=== PATIENT | female | born 1970 | race Hispanic/Latino ===

== ENCOUNTER 2017-05-24 15:52 | Observation (INO) | payer SELFPAY ==
[2017-05-24 16:45] LABS: #Basophils 0.1 thou/uL (0.0-0.2); #Eosinphils 0.3 thou/uL (0.0-0.7); #Monocytes 0.3 thou/uL (0.11-0.59); #Neutrophils 4.6 thou/uL (1.40-6.50); %Lymphocytes 27.6 % (21.0-51.0); Hematocrit 44.1 % (36.0-47.0); Mean Platelet Volume 11.1 fL (7.4-10.4); Red Blood Cell (RBC) Count 5.38 mill/uL (4.20-5.40); White Blood Cell (WBC) Count 7.2 thou/uL (4.8-10.8)
[2017-05-24 17:07] LABS: ALT (SGPT) 50 U/L (8-55); AST (SGOT) 63 U/L (5-34); Alkaline Phosphatase 88 U/L (40-150); Anion Gap 13 mmol/L (10-20); BUN (Urea Nitrogen) 10 mg/dL (7.0-18.7); Bilirubin, Total 0.2 mg/dL (0.2-1.2); Calc. Creatinine Clearance 0 mL/min (70-130); Calcium 8.8 mg/dL (7.8-10.44); Carbon Dioxide 22 mmol/L (22-29); Chloride 101 mmol/L (98-107); Estimated GFR-MDRD 80; Globulin 3.8 g/dL (2.4-3.5); Protein, Total 7.5 g/dL (6.0-8.3)
[2017-05-24 18:05] LABS: PTT 29.3 SEC (22.9-36.1); Prothrombin Time 13.5 SEC (12.0-14.7)
--- NOTE | 2017-05-24 20:09 | ULT ---
BILATERAL LOWER EXTREMITY VENOUS DUPLEX EXAM: 05/24/17 HISTORY: Leg pain. Examination is limited due to body habitus. Patient also is in considerable pain due to ultrasound p robe. Real time color doppler evaluation of the right and left lower extremities was performed from groin to calf. This includes evaluation of the common femoral, superficial and profunda femoral, saphenous , popliteal and trifurcation veins. This shows patent deep venous systems bilaterally. There is norm al compressibility and augmentation. IMPRESSION: No evidence of DVT of either lower extremity. POS: [facility]
[2017-05-24] MEDS ORDERED: Clindamycin (PEDI) 450 MG in Admixture Fee 1 EACH IVPB SCH ×4 (20:30)
[2017-05-24] MEDS ORDERED: Insulin Regular 300 UNITS/3 ML VIAL ONE (20:33)
[2017-05-24] MEDS ORDERED: HYDROcodone/Acetaminophen 10/325 mg Tablet ONE (20:33)
[2017-05-24] MEDS ORDERED: Ondansetron HCl/PF 4 MG/2 ML Vial IVP PRN ×2 (22:05→22:16)
[2017-05-24] MEDS ORDERED: HYDROcodone/Acetaminophen 5/325 mg Tablet PO PRN ×2 (22:05)
[2017-05-24] MEDS ORDERED: Ondansetron ODT 4 MG TAB SL PRN (22:05)
[2017-05-24] MEDS ORDERED: Temazepam 15 MG CAP PO PRN (22:16)
[2017-05-24] MEDS ORDERED: Lorazepam 1 MG TAB PO PRN (22:16)
[2017-05-24] MEDS ORDERED: Bisacodyl 5 MG TAB PO PRN (22:16)
[2017-05-24] MEDS ORDERED: Loratadine 10 MG TAB PO PRN (22:16)
[2017-05-24] MEDS ORDERED: traMADol HCl 50 MG TAB PO PRN (22:16)
[2017-05-24] MEDS ORDERED: Calcium Carbonate 500 MG ChewTAB PO PRN (22:16)
[2017-05-24] MEDS ORDERED: Acetaminophen 325 MG TAB PO PRN (22:16)
[2017-05-24] MEDS ORDERED: cloNIDine 0.1 MG TAB PO PRN (22:16)
[2017-05-24] MEDS ORDERED: Senokot 8.6 MG TAB PO PRN (22:16)
[2017-05-24] MEDS ORDERED: Milk Of Magnesia 30 ML UDCUP PO PRN (22:16)
[2017-05-24] MEDS ORDERED: Diabetic Tussin 200 MG/10 ML UDCUP PO PRN (22:16)
[2017-05-24] MEDS ORDERED: Mag-Al 1200 mg/1200 mg/30 ML UDCUP PO PRN (22:16)
[2017-05-24] MEDS ORDERED: Dextrose 5% in Water 1,000 ML IV PRN (22:16)
[2017-05-24] MEDS ORDERED: Dextrose 50% Abboject 50 ML SYRINGE SLOW IVP PRN (22:16)
[2017-05-24] MEDS ORDERED: Benzonatate 100 MG CAP PO PRN (22:16)
[2017-05-24] MEDS ORDERED: Nitroglycerin 0.4 MG TAB (25 Tab Bottle) SL PRN (22:16)
[2017-05-24] MEDS ORDERED: hydrALAZINE 20 MG/ML VIAL SLOW IVP PRN (22:16)
[2017-05-24] MEDS ORDERED: Sodium Chloride 0.9% 1,000 ML IV SCH (22:30)
[2017-05-24] MEDS ORDERED: Vancomycin HCl 1.75 GM in Sodium Chloride 0.9% 500 ML IVPB SCH (23:00)
[2017-05-24 23:14] VITALS: BMI 39.5
[2017-05-25 04:46] LABS: #Eosinphils 0.3 thou/uL (0.0-0.7); #Monocytes 0.3 thou/uL (0.11-0.59); #Neutrophils 4.2 thou/uL (1.40-6.50); %Basophils 0.2 % (0.0-1.0); %Eosinophils 4.5 % (0.0-10.0); %Lymphocytes 29.8 % (21.0-51.0); %Monocytes 3.9 % (0.0-10.0); Hematocrit 38.5 % (36.0-47.0); Mean Platelet Volume 11.3 fL (7.4-10.4); Red Blood Cell (RBC) Count 4.79 mill/uL (4.20-5.40); White Blood Cell (WBC) Count 6.8 thou/uL (4.8-10.8)
[2017-05-25 05:04] LABS: Anion Gap 8 mmol/L (10-20); BUN (Urea Nitrogen) 9 mg/dL (7.0-18.7); Calc. Creatinine Clearance 200 mL/min (70-130); Calcium 8.4 mg/dL (7.8-10.44); Carbon Dioxide 27 mmol/L (22-29); Chloride 102 mmol/L (98-107); Estimated GFR-MDRD Greater than 90
[2017-05-25] MEDS: HumaLOG 300 UNITS/3 ML VIAL SC PRN ×3 (05:29→20:13)
[2017-05-25] MEDS: Meropenem 1 GM, Admixture Fee 1 EACH in Sodium Chloride 0.9% 100 ML IVPB SCH ×3 (05:29→20:11)
[2017-05-25] MEDS ORDERED: CETIRIZINE HCL PO PRN (06:43)
[2017-05-25] MEDS ORDERED: PROVENTIL INHALER 6.7 G (200 INHALATIONS) INH PRN (06:43)
[2017-05-25] MEDS ORDERED: Loratadine 10 MG TAB PO PRN (06:57)
--- NOTE | 2017-05-25 07:37 | HP ---
DATE OF ADMISSION: 05/24/2017 PRIMARY CARE PHYSICIAN: Dr. Faby Lloyd. CHIEF COMPLAINT: Lower extremity pain and redness bilaterally. HISTORY OF PRESENT ILLNESS: Ms. hCristian is a pleasant 46-year-old female with past medical h istory of diabetes, hypertension, and dyslipidemia, who presented to the emergency room with the abo ve-mentioned complaint. History is mainly obtained by the patient herself and electronic medical re cords have been reviewed. The patient was last admitted to our facility last year, at which time rocío urbano was admitted and treated for asthma exacerbation and chest pain workup. Today, the patient reports that she has been having pain in both of her legs for the last 3-4 days, which has gotten progressively worse. She has also started to notice swelling and redness in her le gs as well. She had a small abrasion on her right gomes, but then her symptoms extended to both legs . She has no history of DVT or cellulitis or similar symptoms in the past. She denies any fevers, but has been having some chills. She is compliant with her medications, being on insulin, but her b lood sugars have been running higher than normal. She presented to the ER. Upon presentation to the ER, she was hemodynamically stable with a blood pressure of 114/74 with a p ulse of 78. On examination, she was found to have bilateral cellulitis-like symptoms in her legs wi th erythema, which is more like petechiae on both legs associated with tenderness to touch. She king s not have any edema. She underwent lower extremity ultrasound, which was negative for DVT. She wa s given IV antibiotics, namely clindamycin in the ER and is now being admitted with a presumptive di agnosis of cellulitis. PAST MEDICAL HISTORY: 1. Diabetes mellitus, type 2, insulin-dependent. 2. Hypertension. 3. Dyslipidemia. 4. Asthma. 5. Depression. PAST SURGICAL HISTORY: 1. Hysterectomy with tubal ligation and salpingo-oophorectomy. 2. Drainage of right paratubal cyst. SOCIAL HISTORY: She is and lives with her family. No history of drug, tobacco, or alcohol abuse. FAMILY HISTORY: Significant for father at the age of 92. He had a heart attack and heart dise ase. Multiple family members have diabetes and hypertension. ALLERGIES: Include KEFLEX and LISINOPRIL. MEDICATIONS: She is on Lyrica 150 mg p.o. b.i.d., aspirin 81 mg daily, ranitidine 150 mg daily, Duo Neb as needed, insulin Lantus 75 units b.i.d., Prempro 1 tablet at bedtime, cetirizine as needed, Ce lebrex 1 tablet p.o. b.i.d., albuterol inhaler as needed, NovoLog 10 units t.i.d., Prozac 1 tablet d aily, Glucotrol-XL 10 mg daily, and Cozaar 25 mg daily. REVIEW OF SYSTEMS: The following complete review of systems was negative, unless otherwise mentione d in the HPI or below: Constitutional: Weight loss or gain, ability to conduct usual activities. Skin: Rash, itching. Eyes: Double vision, pain. ENT/Mouth: Nose bleeding, neck stiffness, pain, tenderness. Cardiovascular: Palpitations, dyspnea on exertion, orthopnea. Respiratory: Shortnes s of breath, wheezing, cough, hemoptysis, fever or night sweats. Gastrointestinal: Poor appetite, abdominal pain, heartburn, nausea, vomiting, constipation, or diarrhea. Genitourinary: Urgency, fr equency, dysuria, nocturia. Musculoskeletal: Pain, swelling. Neurologic/Psychiatric: Anxiety, de pression. Allergy/Immunologic: Skin rash, bleeding tendency. It is negative except for those ment ioned in the history and physical. LABORATORY DATA: 1. Her CBC is remarkable. WBC is 7.2 with 63% neutrophils. 2. Coagulation studies within normal limits. 3. Serum chemistry shows sodium of 132 with blood sugar of 341. Her C-reactive protein is minimall y elevated at 2.49. 4. Lower extremity ultrasound is negative for DVT bilaterally. PHYSICAL EXAMINATION: VITAL SIGNS: Include temperature 98.6, pulse of 76, respirations 20, saturating 95% on room air, bl ood pressure 130/77. GENERAL: In no acute distress, lying comfortably in bed, awake, alert, oriented x3. HEENT EXAMINATION: Mucous membrane is moist and pink. No oropharyngeal exudate or erythema. Head is normocephalic and atraumatic. Pupils equal, reactive to light. NECK: Supple without any lymphadenopathy, JVD, or bruit. CHEST: Clear to auscultation without any wheezing, rales, or rhonchi. Rhythm is regular without an y murmur, rubs, or gallops. ABDOMEN: Obese, soft, nontender, nondistended, positive bowel sounds. EXTREMITIES: Show calf tenderness bilaterally with a small abrasion on the right gomes and petechia- like erythema and non-blanchable red rash on both shins going up to the right anterior thigh. NEUROLOGIC EXAMINATION: Nonfocal. SKIN: As above on the legs. VASCULAR: A +2 pedal pulses felt bilaterally. IMPRESSION AND PLAN: 1. Bilateral lower extremity cellulitis. The patient has had a small trauma to her right gomes, and her being a diabetic she is more susceptible for infections. At this time, she will be treated wit h IV antibiotics in the form of vancomycin and meropenem given her allergy to cephalosporin. She wi ll be treated with 1 bag of normal saline at 75 mL per hour and blood cultures will be followed. At this time, she is hemodynamically stable. 2. Diabetes mellitus. We will restart her home medications and add insulin sliding scale and provi de Accu-Cheks before meals and at bedtime with a heart healthy and carb-controlled diet. 3. Hypertension, currently well controlled. We will restart her home medications with parameters. 4. History of asthma, currently well controlled symptoms without any exacerbation. We will continu e her home medication of the inhalers at this time. 6. Deep vein thrombosis and gastrointestinal prophylaxis in the form of subcutaneous Lovenox and pr oton pump and Pepcid b.i.d. 7. Code status: FULL CODE, discussed with the patient. DISPOSITION: The patient is being admitted to medical floor for lower extremity cellulitis and rule out sepsis. Further management will depend upon her clinical course. Estimated length of stay is at least 2-3 midnights.
[2017-05-25] MEDS: HYDROcodone/Acetaminophen 5/325 mg Tablet PO PRN ×2 (08:24→20:10)
[2017-05-25] MEDS: CeleCOXIB 100 MG CAP PO SCH ×2 (08:25→20:11)
[2017-05-25] MEDS: Pregabalin 75 MG CAP PO SCH ×2 (08:27→20:10)
[2017-05-25] MEDS: Famotidine 20 MG TAB PO SCH (08:28)
[2017-05-25] MEDS: FLUoxetine HCl 10 MG CAP PO SCH (08:28)
[2017-05-25] MEDS: Enoxaparin Sodium 40 MG/0.4 ML SYRINGE SC SCH (08:44)
[2017-05-25] MEDS: HumaLOG 300 UNITS/3 ML VIAL SC SCH ×3 (08:44→16:46)
[2017-05-25] MEDS: Losartan Potassium 25 MG TAB PO SCH (08:45)
[2017-05-25] MEDS ORDERED: Non-Formulary Item 1 EACH (Ranitidine Hcl [Ranitidine Hcl] 150 MG) PO SCH (09:00)
[2017-05-25] MEDS ORDERED: FLU VACC QS2017-18 36 mo. & older 0.5 ML SYRINGE IM ONE (09:00)
[2017-05-25] MEDS ORDERED: Famotidine 20 MG TAB PO SCH (09:00)
[2017-05-25] MEDS: Vancomycin HCl 1.75 GM in Sodium Chloride 0.9% 500 ML IVPB SCH ×2 (12:09→23:41)
--- NOTE | 2017-05-25 13:00 | PDOC.EVN ---
Event Note - Event Note Event Note: Chart reviewed. Pt seen. Denies chest pain or shortness of breath. Leg pain better. Will follow.
[2017-05-25] MEDS ORDERED: ESTROGEN CON PO SCH (21:00)
[2017-05-25] MEDS ORDERED: M PROGEST ACET PO SCH (21:00)
[2017-05-26] MEDS: Meropenem 1 GM, Admixture Fee 1 EACH in Sodium Chloride 0.9% 100 ML IVPB SCH ×3 (05:50→20:31)
[2017-05-26] MEDS: HumaLOG 300 UNITS/3 ML VIAL SC PRN ×2 (05:52→20:35)
[2017-05-26] MEDS: Pregabalin 75 MG CAP PO SCH ×2 (08:12→20:30)
[2017-05-26] MEDS: Famotidine 20 MG TAB PO SCH (08:13)
[2017-05-26] MEDS: Losartan Potassium 25 MG TAB PO SCH (08:13)
[2017-05-26] MEDS: FLUoxetine HCl 10 MG CAP PO SCH (08:13)
[2017-05-26] MEDS: CeleCOXIB 100 MG CAP PO SCH ×2 (08:14→20:30)
[2017-05-26] MEDS: Enoxaparin Sodium 40 MG/0.4 ML SYRINGE SC SCH (08:16)
[2017-05-26] MEDS: HumaLOG 300 UNITS/3 ML VIAL SC SCH ×3 (08:17→17:05)
--- NOTE | 2017-05-26 11:09 | PDOC.PN ---
- Subjective Encounter Start Date: 05/26/17 Encounter Start Time: 08:40 Pt seen for followup re: cellulitis. Denies chest pain, nausea, vomiting or diarrhea. Leg pain is better. - Objective MAR Reviewed: Yes Vital Signs & Weight: Vital Signs (12 hours) Temp Pulse Resp BP Pulse Ox 05/26/17 10:54 98.2 F 70 16 113/74 96 05/26/17 08:00 98.3 F 73 16 05/26/17 07:15 98.3 F 73 16 101/55 L 96 05/26/17 04:00 97.6 F 74 18 148/83 H 95 05/26/17 00:00 98.6 F 72 16 120/77 97 Weight Weight 245 lb I&O: 05/25/17 05/26/17 05/27/17 06:59 06:59 06:59 Intake Total 502 3444 Balance 502 3444 Result Diagrams: 05/25/17 03:21 05/25/17 03:21 Additional Labs: Accuchecks 05/26/17 05/25/17 05/25/17 04:05 19:31 16:00 POC Glucose 233 H 241 H 256 H 05/25/17 10:59 POC Glucose 257 H Phys Exam - Physical Examination Obese HEENT: moist MMs, sclera anicteric, oral pharynx no lesions Neck: supple, full ROM Respiratory: no wheezing, no rales, no rhonchi, clear to auscultation bilateral Cardiovascular: RRR, no significant murmur, no rub Gastrointestinal: soft, non-tender, no distention, positive bowel sounds Musculoskeletal: no edema, pulses present Neurological: moves all 4 limbs Lymphatic: no nodes Psychiatric: normal affect, A&O x 3 Deviation from normal: German leg cellulitis improving Dx/Plan (1) Cellulitis Code(s): L03.90 - CELLULITIS, UNSPECIFIED Status: Acute (2) HTN (hypertension) Code(s): I10 - ESSENTIAL (PRIMARY) HYPERTENSION Status: Chronic (3) Asthma Code(s): J45.909 - UNSPECIFIED ASTHMA, UNCOMPLICATED Status: Chronic (4) Depression Code(s): F32.9 - MAJOR DEPRESSIVE DISORDER, SINGLE EPISODE, UNSPECIFIED Status : Chronic (5) Diabetes mellitus Code(s): E11.9 - TYPE 2 DIABETES MELLITUS WITHOUT COMPLICATIONS Status: Chronic (6) Dyslipidemia Code(s): E78.5 - HYPERLIPIDEMIA, UNSPECIFIED Status: Chronic - Plan continue antibiotics, out of bed/ambulate * . Continue IV vancomycin, IV meropenem, await blood cultures. Monitor vital signs, titrate antihypertensives as needed. Continue accuchecks, insulin sliding scale. Asthma stable. Review of Systems - Review of Systems Constitutional: negative: Fever, Chills, Sweats, Weakness, Malaise Respiratory: negative: Cough, Dry, Shortness of Breath, Hemoptysis, SOB with Excertion, Pleuritic Pain, Sputum, Wheezing Cardiovascular: negative: Chest Pain, Palpitations, Orthopnea, Paroxysmal Noc. Dyspnea, Edema, Light Headedness, Other Gastrointestinal: negative: Nausea, Vomiting, Abdominal Pain, Diarrhea, Constipation, Melena, Hematochezia Genitourinary: negative: Dysuria, Frequency, Incontinence, Hematuria, Retention Musculoskeletal: Leg Pain - Medications/Allergies Allergies/Adverse Reactions: Allergies Allergy/AdvReac Type Severity Reaction Status Date / Time cephalexin monohydrate Allergy Severe Verified 11/13/15 01:07 [From Keflex] cefazolin sodium Allergy Verified 11/13/15 01:07 [From Kefzol] lisinopril Allergy Verified 11/13/15 01:07 Medications: Current Medications Acetaminophen (Tylenol) 650 mg PO Q4H PRN PRN Reason: Headache/Fever or Pain Hydrocodone Bitart/Acetaminophen (Banks 5/325) 1 tab PO Q4H PRN PRN Reason: Moderate Pain (4-6) Last Admin: 05/25/17 20:10 Dose: 1 tab Al Hydroxide/Mg Hydroxide (Maalox) 30 ml PO Q6H PRN PRN Reason: Heartburn or Indigestion Albuterol Sulfate (Proventil Hfa) 2 puff INH Q4H PRN PRN Reason: SOB &/or Wheezing Albuterol/Ipratropium (Duoneb) 3 ml NEB QIDPRN PRN PRN Reason: SOB &/or Wheezing Aspirin (Aspirin Chewable) 81 mg PO DAILY ANGELICA Last Admin: 05/26/17 08:15 Dose: 81 mg Benzonatate (Tessalon) 100 mg PO Q4H PRN PRN Reason: Cough Bisacodyl (Dulcolax) 10 mg PO DAILYPRN PRN PRN Reason: Constipation Calcium Carbonate (Tums) 1,000 mg PO Q4H PRN PRN Reason: Heartburn or Indigestion Celecoxib (Celebrex) 100 mg PO BID [facility] Last Admin: 05/26/17 08:14 Dose: 100 mg Clonidine HCl (Catapres) 0.1 mg PO Q4H PRN PRN Reason: Systolic BP > 160 Dextrose/Water (Dextrose 50%) 25 gm SLOW IVP PRN PRN PRN Reason: Hypoglycemia Enoxaparin Sodium (Lovenox) 40 mg SC 0900 [facility] Last Admin: 05/26/17 08:16 Dose: Not Given Famotidine (Pepcid) 20 mg PO QAM [facility] Last Admin: 05/26/17 08:13 Dose: 20 mg Fluoxetine HCl (Prozac) 10 mg PO DAILY [facility] Last Admin: 05/26/17 08:13 Dose: 10 mg Glipizide (Glucotrol Xl) 10 mg PO DAILY-[facility] Last Admin: 05/26/17 08:14 Dose: 10 mg Glucagon (Glucagon) 1 mg IM PRN PRN PRN Reason: Hypoglycemia Guaifenesin (Robitussin Sf) 200 mg PO Q4H PRN PRN Reason: Cough Hydralazine HCl (Apresoline) 10 mg SLOW IVP Q4H PRN PRN Reason: Systolic BP > 170 Dextrose/Water (D5w) 1,000 mls @ 0 mls/hr IV .Q0M PRN; As Directed PRN Reason: Hypoglycemia Vancomycin HCl 1.75 gm/ Sodium (Chloride) 500 mls @ 250 mls/hr IVPB 1200,2359 [facility] Last Admin: 05/25/17 23:41 Dose: 500 mls Meropenem 1 gm/ Miscellaneous Medication 1 each/ Sodium Chloride 100 mls @ 200 mls/hr IVPB 0400,1200,2000 [facility] Last Admin: 05/26/17 05:50 Dose: 100 mls Insulin Human Lispro (Humalog) 0 units SC .MODERATE SLIDING SC PRN PRN Reason: Moderate Correctional Scale Last Admin: 05/26/17 05:52 Dose: 4 unit Insulin Human Lispro (Humalog) 0 units SC .BEDTIME SLIDING SC PRN PRN Reason: Bedtime Correctional Scale Last Admin: 05/25/17 20:13 Dose: 2 unit Insulin Human Lispro (Humalog) 10 units SC TID-[facility] Last Admin: 05/26/17 08:17 Dose: 10 unit Loratadine (Claritin) 10 mg PO DAILYPRN PRN PRN Reason: Sinus Symptoms Lorazepam (Ativan) 1 mg PO Q4H PRN PRN Reason: Anxiety/Agitation Losartan Potassium (Cozaar) 25 mg PO DAILY [facility] Last Admin: 05/26/17 08:13 Dose: Not Given Magnesium Hydroxide (Milk Of Magnesium) 30 ml PO DAILYPRN PRN PRN Reason: Constipation Miscellaneous Medication (Pharmacy To Dose) 1 each IVPB PRN PRN PRN Reason: Pharmacy to dose Nitroglycerin (Nitrostat) 0.4 mg SL Q5MIN PRN PRN Reason: Chest Pain Estrogen,Con/M- Progest Acet [ Prempro] 1 Tablet 1 tablet PO [facility] Ondansetron HCl (Zofran) 4 mg IVP Q6H PRN PRN Reason: Nausea/Vomiting Last Admin: 05/25/17 02:57 Dose: 4 mg Pregabalin (Lyrica) 150 mg PO BID [facility] Last Admin: 05/26/17 08:12 Dose: 150 mg Senna (Senokot) 2 tab PO HSPRN PRN PRN Reason: Constipation Sodium Chloride (Flush - Normal Saline) 10 ml IVF Q12HR [facility] Last Admin: 05/26/17 08:16 Dose: 10 ml Sodium Chloride (Flush - Normal Saline) 10 ml IVF PRN PRN PRN Reason: Saline Flush Temazepam (Restoril) 15 mg PO HSPRN PRN PRN Reason: Insomnia Tramadol HCl (Ultram) 50 mg PO Q4H PRN PRN Reason: Moderate Pain (4-6)
[2017-05-26 11:43] LABS: #Basophils 0.1 thou/uL (0.0-0.2); #Eosinphils 0.3 thou/uL (0.0-0.7); #Lymphocytes 1.6 thou/uL (1.20-3.40); #Monocytes 0.3 thou/uL (0.11-0.59); %Basophils 0.9 % (0.0-1.0); %Eosinophils 4.5 % (0.0-10.0); %Monocytes 5.3 % (0.0-10.0); Hematocrit 39.5 % (36.0-47.0); Mean Platelet Volume 10.8 fL (7.4-10.4); Red Blood Cell (RBC) Count 4.93 mill/uL (4.20-5.40); White Blood Cell (WBC) Count 6.2 thou/uL (4.8-10.8)
[2017-05-26 11:58] LABS: Anion Gap 9 mmol/L (10-20); BUN (Urea Nitrogen) 7 mg/dL (7.0-18.7); Calc. Creatinine Clearance 194 mL/min (70-130); Calcium 9.1 mg/dL (7.8-10.44); Carbon Dioxide 28 mmol/L (22-29); Chloride 102 mmol/L (98-107); Estimated GFR-MDRD Greater than 90
[2017-05-26] MEDS: Vancomycin HCl 1.75 GM in Sodium Chloride 0.9% 500 ML IVPB SCH (12:06)
[2017-05-26] MEDS: HYDROcodone/Acetaminophen 5/325 mg Tablet PO PRN (12:12)
[2017-05-26] MEDS ORDERED: diphenhydrAMINE 25 MG CAP PO SCH (18:00)
[2017-05-26 23:15] LABS: Vancomycin, Trough 9.5 ug/mL
[2017-05-27] MEDS: Vancomycin HCl 1.5 GM in Sodium Chloride 0.9% 250 ML 300 ML IVPB SCH ×2 (00:01→09:56)
[2017-05-27] MEDS: HYDROcodone/Acetaminophen 5/325 mg Tablet PO PRN (00:08)
[2017-05-27] MEDS: Meropenem 1 GM, Admixture Fee 1 EACH in Sodium Chloride 0.9% 100 ML IVPB SCH (03:17)
[2017-05-27 05:05] LABS: #Eosinphils 0.3 thou/uL (0.0-0.7); #Lymphocytes 2.2 thou/uL (1.20-3.40); #Monocytes 0.3 thou/uL (0.11-0.59); #Neutrophils 4.5 thou/uL (1.40-6.50); %Basophils 0.1 % (0.0-1.0); %Lymphocytes 30.4 % (21.0-51.0); %Monocytes 4.1 % (0.0-10.0); Hematocrit 40.7 % (36.0-47.0); Mean Platelet Volume 10.9 fL (7.4-10.4); Red Blood Cell (RBC) Count 5.07 mill/uL (4.20-5.40); White Blood Cell (WBC) Count 7.3 thou/uL (4.8-10.8)
[2017-05-27] MEDS: HumaLOG 300 UNITS/3 ML VIAL SC PRN (05:05)
[2017-05-27 05:07] LABS: Anion Gap 10 mmol/L (10-20); BUN (Urea Nitrogen) 10 mg/dL (7.0-18.7); Calc. Creatinine Clearance 175 mL/min (70-130); Carbon Dioxide 28 mmol/L (22-29); Chloride 99 mmol/L (98-107); Estimated GFR-MDRD 88
[2017-05-27] MEDS: Famotidine 20 MG TAB PO SCH (08:08)
[2017-05-27] MEDS: FLUoxetine HCl 10 MG CAP PO SCH (08:08)
[2017-05-27] MEDS: Losartan Potassium 25 MG TAB PO SCH (08:08)
[2017-05-27] MEDS: CeleCOXIB 100 MG CAP PO SCH (08:08)
[2017-05-27] MEDS: Pregabalin 75 MG CAP PO SCH (08:08)
[2017-05-27] MEDS: HumaLOG 300 UNITS/3 ML VIAL SC SCH ×2 (08:09→11:47)
[2017-05-27] MEDS: Enoxaparin Sodium 40 MG/0.4 ML SYRINGE SC SCH (08:09)
[2017-05-27 08:41] VITALS: BP 126/72; TEMP 97.6
[2017-05-27] MEDS ORDERED: Sulfameth/Trimethoprim DS 800-160mg TAB PO SCH ×2 (12:00→21:00)
--- NOTE | 2017-05-27 15:53 | DIS ---
PRIMARY CARE PHYSICIAN: [facility] DATE OF ADMISSION: 05/24/2017 DATE OF DISCHARGE: 05/27/2017 DISCHARGE DIAGNOSIS: Cellulitis. CONDITION OF PATIENT AT THE TIME OF DISCHARGE: Stable. I assessed Ms. Christian on the day of discharge, she denies any chest pain or shortness of breath. Leg pain is better. VITAL SIGNS: Stable. CARDIOVASCULAR: S1 and S2 are heard, regular. LUNGS: Clear to auscultation bilaterally. EXTREMITIES: Cellulitis has almost resolved. HOSPITAL COURSE: Ms. Christian is a pleasant 46-year-old lady who was admitted to [facility] for right lower extremity cellulitis. She was initially treated with intravenous meropenem and vancomycin, subsequently stepped down to trimethoprim sulfamethoxazole. Preliminary blood cultures were negative at 48 hours. She is advised to follow up with her primary care provider for final blood culture report. DISCHARGE MEDICATIONS: ProAir HFA 2 puffs every 4 hours as needed, aspirin 81 mg, Celebrex 100 mg 2 times a day, Zyrtec 10 mg daily as needed, Prempro 0.625/ 2.5 mg at bedtime, Prozac 10 mg daily, NovoLog insulin 10 units 3 times a day, Lantus insulin 75 units 2 times a day, DuoNeb 3 mL q.i.d. p.r.n., Cozaar 25 mg daily, Lyrica 150 mg 2 times a day, ranitidine 150 mg daily, glipizide 10 mg daily, Bactrim-DS 1 tablet 2 times a day for 10 days, and tramadol 50 mg every 8 hours as needed, with a prescription for 15 doses to be dispensed. Many thanks for allowing me to participate in your patient's care. Please feel free to contact me with any questions or concerns. On the day of discharge, Ms. Christian has a white count of 7300, hemoglobin 13.3, platelet count 109,000. Sodium 133, potassium 4.3, and creatinine 0.72. DISCHARGE DESTINATION: Home. [facility]
== END 2017-05-27 13:36 | disposition home or self-care (01) ==
LOC: ERS 15:52 → T4-A 22:07
PROVIDERS: ADMIT Internal Medicine; ATTEND Internal Medicine
DX: L03.115 Cellulitis of right lower limb (principal); L03.116 Cellulitis of left lower limb; E11.9 Type 2 diabetes mellitus without complications; I10 Essential (primary) hypertension; E78.5 Hyperlipidemia, unspecified; J45.909 Unspecified asthma, uncomplicated; F32.9 Major depressive disorder, single episode, unspecified; Z88.1 Allergy status to other antibiotic agents; Z88.8 Allergy status to other drugs, medicaments and biological substances; Z79.899 Other long term (current) drug therapy; Z90.710 Acquired absence of both cervix and uterus; Z90.722 Acquired absence of ovaries, bilateral; Z98.51 Tubal ligation status; Z82.49 Family history of ischemic heart disease and other diseases of the circulatory system
CPT/HCPCS: 36415; 36416; 80048; 80053; 80202; 84703; 85025; 85610; 85652; 85730; 86140; 87040; 90471; 90682; 93970; 96365; 96366; 96367; 96372; 96374; 96375; 96376; A4216; G0008; G0378; J1650; J1815; J2185; J2405; J3370; J7050; Q2036

== ENCOUNTER 2017-06-13 18:34 | Emergency (ER) | payer SELFPAY ==
--- NOTE | 2017-06-13 19:59 | RAD ---
LEFT ANKLE THREE VIEWS 06/13/17 INDICATION: Injury. FINDINGS: No fracture or dislocation. There is a plantar calcaneal enthesophyte. Mild osteophytosis is seen. IMPRESSION: No acute fracture or dislocation of the left ankle. POS: [facility]
--- NOTE | 2017-06-13 19:59 | RAD ---
LEFT FOOT THREE VIEWS 06/13/17 INDICATION: Injury. FINDINGS: There is no fracture or dislocation. Lisfranc joint is intact. There are scattered osteophytes. Plan tar calcaneal enthesophyte is present. IMPRESSION: No acute osseous abnormality left foot. POS: [facility]
[2017-06-13] MEDS ORDERED: Ketorolac Tromethamine 30 MG/ML VIAL ONE (21:18)
== END 2017-06-13 21:28 | disposition home or self-care (01) ==
LOC: ERS 18:34
DX: S90.02XA Contusion of left ankle, initial encounter (principal); S90.32XA Contusion of left foot, initial encounter; E11.40 Type 2 diabetes mellitus with diabetic neuropathy, unspecified; Z79.4 Long term (current) use of insulin; J45.909 Unspecified asthma, uncomplicated; F41.9 Anxiety disorder, unspecified; F32.9 Major depressive disorder, single episode, unspecified; W22.8XXA Striking against or struck by other objects, initial encounter
CPT/HCPCS: 96372; J1885

== ENCOUNTER 2017-06-29 15:37 | Emergency (ER) | payer SELFPAY ==
--- NOTE | 2017-06-29 17:50 | RAD ---
PA AND LATERAL CHEST X-RAY 06/29/17 HISTORY: Cough for three days. COMPARISON: 07/03/15. FINDINGS: The cardiac silhouette and pulmonary vasculature are within normal limits. The lungs remain clear. Th ere has been no interval change from prior study. IMPRESSION: No acute cardiopulmonary process. POS: [facility]
== END 2017-06-29 17:21 | disposition home or self-care (01) ==
LOC: ERS 15:37
DX: J20.9 Acute bronchitis, unspecified (principal); E11.40 Type 2 diabetes mellitus with diabetic neuropathy, unspecified; J45.909 Unspecified asthma, uncomplicated; F41.9 Anxiety disorder, unspecified; F32.9 Major depressive disorder, single episode, unspecified; Z79.899 Other long term (current) drug therapy
CPT/HCPCS: 71020

== ENCOUNTER 2017-09-11 18:39 | Emergency (ER) | payer BC, SELFPAY ==
[~2017-09-11 18:39] MED LIST: ISOVUE-370 76%-LOCM 1 ML ONE
--- NOTE | 2017-09-11 21:16 | RAD ---
TWO VIEW CHEST: 09/11/17 HISTORY: Cough and shortness of breath. Lungs are clear. Heart and mediastinum unremarkable. IMPRESSION: No acute process. POS: [facility]
[2017-09-11] MEDS ORDERED: predniSONE 20 MG TAB ONE (22:22)
[2017-09-11 22:56] LABS: #Eosinphils 0.6 thou/uL (0.0-0.7); #Lymphocytes 2.7 thou/uL (1.20-3.40); #Monocytes 0.5 thou/uL (0.11-0.59); #Neutrophils 5.2 thou/uL (1.40-6.50); %Basophils 0.3 % (0.0-1.0); %Eosinophils 6.1 % (0.0-10.0); %Lymphocytes 30.5 % (21.0-51.0); %Monocytes 5.5 % (0.0-10.0); %Neutrophils 57.6 % (42.0-75.0); Hemoglobin 14.6 g/dL (12.0-16.0); Mean Corpuscular HGB CONC 33.4 g/dL (32.0-36.0); Mean Corpuscular Hemoglobin 26.4 pg (27.0-31.0); Mean Platelet Volume 10.9 fL (7.4-10.4); Platelet Count 119 thou/uL (130-400); RBC Distribution Width 13.7 % (11.5-14.5); Red Blood Cell (RBC) Count 5.52 mill/uL (4.20-5.40)
[2017-09-11 23:12] LABS: Anion Gap 13 mmol/L (10-20); BUN (Urea Nitrogen) 11 mg/dL (7.0-18.7); Calc. Creatinine Clearance 0 mL/min (70-130); Calcium 9.6 mg/dL (7.8-10.44); Carbon Dioxide 27 mmol/L (22-29); Chloride 102 mmol/L (98-107); Estimated GFR-MDRD 80; Glucose 333 mg/dL (70-105); Sodium 138 mmol/L (136-145)
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
== END 2017-09-12 02:10 | disposition home or self-care (01) ==
LOC: ERS 18:39
DX: J45.901 Unspecified asthma with (acute) exacerbation (principal); R91.1 Solitary pulmonary nodule; E11.9 Type 2 diabetes mellitus without complications; F41.9 Anxiety disorder, unspecified; F32.9 Major depressive disorder, single episode, unspecified; Z79.4 Long term (current) use of insulin; Z79.899 Other long term (current) drug therapy; Z79.82 Long term (current) use of aspirin
CPT/HCPCS: 36415; 71046; 71275; 80048; 85025; 85379; 94640; J7506; J7620

== ENCOUNTER 2017-12-02 14:21 | Emergency (ER) | payer OTHER, SELFPAY ==
[2017-12-02] MEDS ORDERED: Ketorolac Tromethamine 30 MG/ML VIAL ONE (14:36)
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
== END 2017-12-02 15:23 | disposition home or self-care (01) ==
LOC: ERS 14:21
DX: S16.1XXA Strain of muscle, fascia and tendon at neck level, initial encounter (principal); E11.40 Type 2 diabetes mellitus with diabetic neuropathy, unspecified; J45.909 Unspecified asthma, uncomplicated; M19.90 Unspecified osteoarthritis, unspecified site; F41.9 Anxiety disorder, unspecified; F32.9 Major depressive disorder, single episode, unspecified; Z79.82 Long term (current) use of aspirin; Z79.899 Other long term (current) drug therapy; Z79.4 Long term (current) use of insulin; V43.62XA Car passenger injured in collision with other type car in traffic accident, initial encounter
CPT/HCPCS: 72125; 96372; J1885

== ENCOUNTER 2017-12-08 00:17 | Emergency (ER) | payer OTHER, SELFPAY ==
[2017-12-08] MEDS ORDERED: HYDROcodone/Acetaminophen 10/325 mg Tablet ONE (00:45)
[2017-12-08 01:15] LABS: #Eosinphils 0.3 thou/uL (0.0-0.7); #Lymphocytes 2.4 thou/uL (1.20-3.40); #Monocytes 0.5 thou/uL (0.11-0.59); #Neutrophils 4.2 thou/uL (1.40-6.50); %Basophils 0.3 % (0.0-1.0); %Eosinophils 3.5 % (0.0-10.0); %Lymphocytes 32.3 % (21.0-51.0); %Neutrophils 56.9 % (42.0-75.0); Hemoglobin 14.4 g/dL (12.0-16.0); Mean Corpuscular HGB CONC 34.3 g/dL (32.0-36.0); Mean Corpuscular Hemoglobin 26.8 pg (27.0-31.0); Mean Corpuscular Volume 78.2 fl (81.0-99.0); Mean Platelet Volume 10.9 fL (7.4-10.4); Platelet Count 122 thou/uL (130-400); RBC Distribution Width 13.8 % (11.5-14.5); Red Blood Cell (RBC) Count 5.37 mill/uL (4.20-5.40); White Blood Cell (WBC) Count 7.4 thou/uL (4.8-10.8)
[2017-12-08 01:34] LABS: Bilirubin Negative (Negative); Blood, Urine Negative (Negative); Clarity CLEAR (Clear); Glucose, Urine (Dipstick) >=1000 mg/dL (Negative); Leukocyte Negative (Negative); Nitrite Negative (Negative); Protein, Urine (Dipstick) Negative (Neg-Trace); Specific Gravity, Urine 1.031 (1.002-1.036); Urobilinogen 0.2 mg/dL (0.2-1.0); pH, Urine 5.5 (5.0-9.0)
[2017-12-08 01:35] LABS: ALT (SGPT) 68 U/L (8-55); AST (SGOT) 46 U/L (5-34); Albumin 3.8 g/dL (3.5-5.0); Alkaline Phosphatase 78 U/L (40-150); Anion Gap 10 mmol/L (10-20); BUN (Urea Nitrogen) 11 mg/dL (7.0-18.7); Bilirubin, Total 0.2 mg/dL (0.2-1.2); Calc. Creatinine Clearance 0 mL/min (70-130); Calcium 8.5 mg/dL (7.8-10.44); Carbon Dioxide 27 mmol/L (22-29); Chloride 102 mmol/L (98-107); Estimated GFR-MDRD 76; Globulin 3.3 g/dL (2.4-3.5); Glucose 267 mg/dL (70-105); Lipase 14 U/L (8-78); Potassium 4.2 mmol/L (3.5-5.1); Protein, Total 7.1 g/dL (6.0-8.3); Sodium 135 mmol/L (136-145)
--- NOTE | 2017-12-08 10:43 | ULT ---
PRELIMINARY REPORT/[facility]/EMERGENTY AFTER-HOURS PROCEDURE US Abdomen Limited, Right Upper Quadrant CLINICAL HISTORY: 47 years old, female; Pain; Other: Ruq pain TECHNIQUE: Real-time ultrasound of the right upper quadrant with image documentation. COMPARISON: No relevant prior studies available. FINDINGS: Limitations: Limited study due to bowel gas and body habitus. Liver: Suboptimally visualized. Echogenic/fatty. Small peripheral focal hypoechoic lesion in the left liver measuring about 1.5 cm. No intrahepatic bile duct dilation. Gallbladder: No gallstones. No gallbladder wall thickening or pericholecystic fluid. Possible minimal sludge. Positive Orozco's sign. Common bile duct: Unremarkable. Pancreas: Limited visualization due to bowel gas. Unremarkable as visualized. Right kidney: No acute findings. No stones. No solid mass. No hydronephrosis. IMPRESSION: Limited study. No definite acute process. Echogenic/fatty liver. Small liver lesion described above; recommend correlation with prior studies and followup as indicated. Other findings above. Thank you for allowing us to participate in the care of your patient. Dictated and Authenticated by: Toby Beckett MD 12/08/2017 2:56 AM Central Time ([place] & [place]) FINAL REPORT LIMITED ABDOMINAL ULTRASOUND: Date 12/08/17 FINDINGS/IMPRESSION: Gallbladder appears unremarkable. No evidence of gallstones identified. Questionable echogenic sludge as noted on the preliminary report. There is 1.0 cm hypoechoic lesion in the left lobe of the liver, possibly cystic, but poorly evaluated on this exam. The liver is somewhat heterogeneous and shows in creased echogenicity, which may represent fatty infiltration. I am in agreement with the preliminary report issued by [facility]. POS: [facility]
== END 2017-12-08 03:12 | disposition home or self-care (01) ==
LOC: ERS 00:17
DX: R10.11 Right upper quadrant pain (principal); E11.40 Type 2 diabetes mellitus with diabetic neuropathy, unspecified; J45.909 Unspecified asthma, uncomplicated; F41.9 Anxiety disorder, unspecified; F32.9 Major depressive disorder, single episode, unspecified; Z79.4 Long term (current) use of insulin; Z79.899 Other long term (current) drug therapy
CPT/HCPCS: 36415; 76705; 80053; 81003; 83690; 85025

== ENCOUNTER 2018-05-22 00:12 | Observation (INO) | payer SELFPAY ==
[2018-05-22] MEDS ORDERED: Ketorolac Tromethamine 30 MG/ML VIAL ONE (00:50)
[2018-05-22 00:55] LABS: #Basophils 0.1 thou/uL (0.0-0.2); #Eosinphils 0.4 thou/uL (0.0-0.7); #Lymphocytes 2.7 thou/uL (1.20-3.40); #Monocytes 0.5 thou/uL (0.11-0.59); #Neutrophils 7.1 thou/uL (1.40-6.50); %Basophils 0.8 % (0.0-1.0); %Eosinophils 3.3 % (0.0-10.0); %Lymphocytes 25.2 % (21.0-51.0); %Neutrophils 65.6 % (42.0-75.0); Hemoglobin 13.4 g/dL (12.0-16.0); Mean Corpuscular HGB CONC 32.4 g/dL (32.0-36.0); Mean Corpuscular Hemoglobin 25.6 pg (27.0-31.0); Platelet Count 126 thou/uL (130-400); RBC Distribution Width 13.5 % (11.5-14.5); Red Blood Cell (RBC) Count 5.24 mill/uL (4.20-5.40); White Blood Cell (WBC) Count 10.8 thou/uL (4.8-10.8)
[2018-05-22 01:10] LABS: ALT (SGPT) 28 U/L (8-55); AST (SGOT) 29 U/L (5-34); Albumin 3.6 g/dL (3.5-5.0); Alkaline Phosphatase 84 U/L (40-150); Anion Gap 12 mmol/L (10-20); BUN (Urea Nitrogen) 10 mg/dL (7.0-18.7); Bilirubin, Total 0.3 mg/dL (0.2-1.2); Calc. Creatinine Clearance 0 mL/min (70-130); Calcium 9.2 mg/dL (7.8-10.44); Carbon Dioxide 25 mmol/L (22-29); Chloride 101 mmol/L (98-107); Estimated GFR-MDRD 82; Globulin 3.3 g/dL (2.4-3.5); Glucose 278 mg/dL (70-105); Lipase 23 U/L (8-78); Potassium 3.9 mmol/L (3.5-5.1); Protein, Total 6.9 g/dL (6.0-8.3); Sodium 134 mmol/L (136-145)
[2018-05-22 01:13] LABS: Troponin I Less than 0.010 ng/mL (< 0.028)
[2018-05-22] MEDS ORDERED: Nitroglycerin 0.4 MG TAB (25 Tab Bottle) ONE (03:07)
[2018-05-22] MEDS ORDERED: Aspirin 325 MG TAB ONE (03:07)
[2018-05-22 04:37] LABS: Troponin I Less than 0.010 ng/mL (< 0.028)
[2018-05-22 07:05] LABS: Troponin I Less than 0.010 ng/mL (< 0.028)
[2018-05-22] MEDS ORDERED: traMADol HCl 50 MG TAB PO PRN (08:28)
[2018-05-22] MEDS ORDERED: Dextrose 50% Abboject 50 ML SYRINGE SLOW IVP PRN (08:28)
[2018-05-22] MEDS ORDERED: Dextrose 5% in Water 1,000 ML IV PRN (08:28)
[2018-05-22] MEDS ORDERED: Non-Formulary Item 1 EACH (Ipratropium/Albuterol Sulfate 3 ML) NEB PRN (08:28)
[2018-05-22] MEDS ORDERED: Bisacodyl 5 MG TAB PO PRN (08:29)
[2018-05-22] MEDS ORDERED: Acetaminophen 325 MG TAB PO PRN (08:29)
[2018-05-22] MEDS ORDERED: Ondansetron ODT 4 MG TAB PO PRN (08:29)
[2018-05-22] MEDS ORDERED: Non-Formulary Item 1 EACH (Ranitidine Hcl [Ranitidine Hcl] 150 MG) PO SCH (09:00)
[2018-05-22] MEDS ORDERED: Non-Formulary Item 1 EACH (Pregabalin [Lyrica] 150 MG) PO SCH (09:00)
[2018-05-22] MEDS ORDERED: INSULIN GLARGINE HUM REC ANLOG 75 UNIT SC SCH (09:00)
[2018-05-22] MEDS ORDERED: Losartan 25 MG TAB PO SCH ×2 (09:00→21:00)
--- NOTE | 2018-05-22 09:23 | HP ---
CHIEF COMPLAINT: Chest pain. HISTORY OF PRESENT ILLNESS: This is a 47-year-old female with past medical history significant for type 2 diabetes mellitus, peripheral neuropathy, asthma , arthritis being admitted for chest pain. She had a chest pain, which started in the morning and chest pain was very sharp, pressure-like in nature, and lasted intermittently for like 30 minutes intervals. Patient states that the pain every time when she came in was 9/10. The initial pain started in the morning, then resolved, then came back in the afternoon resolved and came back once again. Patient states that each time the pain came was associated with nausea, diaphoresis, dizziness, and patient states that she felt like she was going to faint. Patient states that she took Tylenol, which did not help every time when the pain came on. Patient denies any recent travel history. Denies any fever, headaches, vomiting, abdominal pain. REVIEW OF SYSTEMS: Positive for chest pain, chills, diaphoresis, nausea, shortness of breath, otherwise as documented in the HPI. All other systems were reviewed and are negative. PAST MEDICAL HISTORY: Type 2 diabetes mellitus, peripheral neuropathy, ovarian cyst, asthma, arthritis. FAMILY HISTORY: Reviewed and noncontributory to this visit. PAST SURGICAL HISTORY: Ovarian cyst removal x2, oophorectomy, hysterectomy. PSYCHIATRIC HISTORY: Anxiety, depression. SOCIAL HISTORY: Patient denies any illicit drug use. Patient denies any alcohol use. The patient denies any smoking history. ALLERGIES: CEFAZOLIN, CEPHALEXIN. CURRENT MEDICATIONS: 1. Patient is on glipizide 10 mg. 2. Celebrex 100 mg. 3. Lyrica 0.5 tabs oral 2 times a daily. 4. Levemir 75 b.i.d. 5. NovoLog. PHYSICAL EXAMINATION: VITAL SIGNS: Blood pressure is 140/74, pulse of 74, respiratory rate of 18, temperature of 97.7, O2 sat of 96. GENERAL: Patient is lying in bed comfortably, speaking in full sentences, does not appear to be in any acute distress. HEENT: Normocephalic, atraumatic. Pupils are equal, round, and reactive to light. Extraocular movements are intact. No scleral icterus. No conjunctival pallor. Mucous membranes are moist. NECK: Supple, full range of motion. Trachea is midline. No JVD. LUNGS: Clear to auscultation bilaterally. No wheezing or rales. No rhonchi is appreciated. CARDIOVASCULAR: Positive S1 and S2, regular rate and rhythm, no murmurs, no gallops or rubs appreciated. ABDOMEN: Soft, nontender, nondistended, obese abdomen, soft, positive bowel sounds in all quadrants. No rigidity, no guarding. EXTREMITIES: Upper extremity, 5/5 upper extremity strength, good pulses bilaterally. Lower extremity, 5/5 lower extremity strength. Edema. Good pulses bilaterally. NEUROLOGIC: GCS score of 15. Alert, oriented x3. No gross focal neurologic deficits noted. SKIN: Warm, dry, and intact. PSYCHIATRIC: Normal affect. Alert and oriented x3. EKG sinus rhythm with a rate of 73. CT of the chest with IV contrast showed no acute findings. LABORATORY DATA: WBC 10.8, hemoglobin 13.4, hematocrit 41.4, platelet is 126. Sodium 134, potassium 3.9, chloride 101, carbon dioxide 25, anion gap of 12, BUN is 10, creatinine 0.74, glucose is 278. Calcium is 9.2, total bilirubin 0.3 , AST 29, ALT 28. Troponin is less than 0.010 x2. Lipase is 23. ASSESSMENT AND PLAN: This is a 47-year-old female with history of diabetes mellitus type 2, being admitted for: 1. Chest pain. We will rule out acute coronary syndrome. We will follow up on labs in the a.m. Patient has been started on aspirin, had given nitro. We will do stress test in the a.m. and we will follow up on the results. We will give patient DuoNeb treatments since patient also has history of asthma. This can also be contributing, the patient having chest tightness with some shortness of breath. We will continue to monitor the patient. Pulmonary embolism has been ruled out. 2. History of diabetes mellitus, type 2, uncontrolled. At this time, we will start patient on her home medications. We will do insulin sliding scale. 3. Peripheral neuropathy. We will continue the patient on her current medications and continue current management. 4. History of arthritis. We are currently holding patient's Celebrex at this time. We will continue patient on pain medications. 5. History of asthma. We will continue DuoNeb treatments. 6. Deep venous thrombosis and gastrointestinal prophylaxis. We will do SCDs. We will continue patient on her home dose of Pepcid. MTDD
--- NOTE | 2018-05-22 10:06 | CT ---
PRELIMINARY REPORT/[facility]/EMERGENTY AFTER-HOURS PROCEDURE CT Angiography Chest With Intravenous Contrast CLINICAL HISTORY: 47 years old, female; Pain; Chest pain; Type not specified; Patient HX: F47 presents to ed with C/O c hest pain onset this morning. Pt describes the pain as sharp. Associated with nausea, diaphoresis, di zziness. No syncope. Pt also reports shortness of breath, states that she thinks it may be her asthma. Pt reports a different type of "chest pain" associated with her SOB. Pt also reports chills, subjective fever TECHNIQUE: Axial computed tomographic angiography images of the chest with intravenous contrast using pulmonary embolism protocol. MIP reconstructed images were created and reviewed. COMPARISON: No relevant prior studies available. FINDINGS: Pulmonary arteries: No acute findings. No evidence of pulmonary embolism. Aorta: No acute findings. No thoracic aortic aneurysm or dissection. Lungs: Right upper lobe 8mm peripheral nodule. Few other scattered punctate nonspecific nodules. No mass. No consolidation. Pleural space: No effusion. No pneumothorax. Heart: Mild cardiomegaly. No pericardial effusion. Bones/joints: No acute fracture. No dislocation. Soft tissues: No acute findings. Lymph nodes: No lymphadenopathy. Upper abdomen: Fatty liver. Small left liver peripheral high attenuation focus. IMPRESSION: No acute findings. No evidence of pulmonary embolism. Mild cardiomegaly. Right upper lobe nodule desc ribed above; this was also reported on a prior CT although images are not available for my review; re commend comparison with that CT to ensure stability. Thank you for allowing us to participate in the care of your patient. Dictated and Authenticated by: Toby Beckett MD 05/22/2018 2:13 AM Central Time ([place] & [place]) FINAL REPORT EMERGENT AFTER HOURS CT ANGIOGRAM THORAX WITH IV CONTRAST AND 3D RECONSTRUCTIONS: DATE: 05/22/2018. HISTORY: Chest pain, possible malignancy. Swelling in feet. Shortness of breath. COMPARISON: CTA chest on 09/12/2017. IMPRESSION: 1. No CT evidence of a pulmonary embolus. 2. Stable pulmonary nodule in the right upper lobe along the minor fissure stable from prior exam an d also stable when compared to a study on 11/12/2015. This nodule measures approximately 8 mm. 3. Fatty infiltration of the liver with what appears to be small enhancing mass in the posterior asp ect lateral segment left hepatic lobe measuring approximately 1.3 cm. This is stable when compared t o the prior exam and is also unchanged when compared to prior CT abdomen on 01/22/2014. 4. Findings are in agreement with the preliminary report by [facility]. POS: [facility]
[2018-05-22] MEDS: Pregabalin 75 MG CAP PO SCH ×2 (10:22→20:50)
[2018-05-22] MEDS: Famotidine 20 MG TAB PO SCH (10:23)
[2018-05-22] MEDS: Insulin Glargine 75 UNITS in Pre-Filled Syringe 1 EACH SC SCH ×2 (12:19→20:45)
[2018-05-22] MEDS ORDERED: Regadenoson 0.4 MG/5 ML SYRINGE ONE (16:13)
--- NOTE | 2018-05-22 17:11 | PDOC.PN ---
- Subjective Encounter Start Date: 05/22/18 Encounter Start Time: 13:00 Patient sitting in bed with family at bedside. She denies any chest pain or shortness of breath at the moment. CTA showed no evidence of PE at this time, however did reveal stable lung nodule seen on prior exam. She tolerating diet and denies any complaints. Troponin negative x2. - Objective Resuscitation Status: Resuscitation Status FULL:Full Resuscitation MAR Reviewed: Yes Vital Signs & Weight: Vital Signs (12 hours) Temp Pulse Resp BP Pulse Ox 05/22/18 15:57 98.6 F 75 16 131/62 95 05/22/18 12:13 98.3 F 76 20 149/70 H 97 05/22/18 07:35 98.0 F 67 16 128/57 L 95 Weight Weight 241 lb 8 oz Result Diagrams: 05/22/18 00:39 05/22/18 00:39 Additional Labs: Accuchecks 05/22/18 05/22/18 05/22/18 16:34 12:15 05:57 POC Glucose 390 H 310 H 236 H Radiology Reviewed by me: Yes EKG Reviewed by me: Yes Phys Exam - Physical Examination Constitutional: NAD HEENT: PERRLA, moist MMs, sclera anicteric, oral pharynx no lesions Neck: no nodes, no JVD, supple Respiratory: no wheezing, no rales, no rhonchi, clear to auscultation bilateral Cardiovascular: RRR, no significant murmur, no rub Gastrointestinal: soft, non-tender, no distention, positive bowel sounds obese Musculoskeletal: no edema, pulses present Neurological: non-focal, normal sensation, moves all 4 limbs Lymphatic: no nodes Psychiatric: normal affect, A&O x 3 Skin: no rash, normal turgor, cap refill <2 seconds Dx/Plan (1) Chest pain Code(s): R07.9 - CHEST PAIN, UNSPECIFIED Status: Acute (2) Asthma Code(s): J45.909 - UNSPECIFIED ASTHMA, UNCOMPLICATED Status: Chronic (3) Diabetes mellitus Code(s): E11.9 - TYPE 2 DIABETES MELLITUS WITHOUT COMPLICATIONS Status: Chronic (4) HTN (hypertension) Code(s): I10 - ESSENTIAL (PRIMARY) HYPERTENSION Status: Chronic (5) Lung nodule Code(s): R91.1 - SOLITARY PULMONARY NODULE Status: Acute Comment: Stable and unchanged from prior evaluation - Plan cont current plan of care, plan discussed w/ family, DVT proph w/SCDs * Serial Troponin negative x2, Continue home medications and nuonebs as needed * CTA results discussed with patient and demonstrate stable lung nodule with no evidence of PE * 2 day stress test, second part will take place in the am * Likely discharge tomorrow if workup unremarkable.
[2018-05-22] MEDS: HumaLOG 300 UNITS/3 ML VIAL SC PRN ×2 (17:13→20:45)
--- NOTE | 2018-05-22 17:13 | PDOC.EVN ---
Event Note - Event Note Event Note: plqaan of care discussed with sam Clemente
[2018-05-23 05:06] LABS: #Eosinphils 0.4 thou/uL (0.0-0.7); #Monocytes 0.5 thou/uL (0.11-0.59); #Neutrophils 6.8 thou/uL (1.40-6.50); %Basophils 0.3 % (0.0-1.0); %Eosinophils 3.6 % (0.0-10.0); %Lymphocytes 27.9 % (21.0-51.0); %Monocytes 4.7 % (0.0-10.0); %Neutrophils 63.5 % (42.0-75.0); Hemoglobin 13.3 g/dL (12.0-16.0); Mean Corpuscular HGB CONC 32.4 g/dL (32.0-36.0); Mean Corpuscular Hemoglobin 25.5 pg (27.0-31.0); Mean Corpuscular Volume 78.8 fL (78.0-98.0); Platelet Count 130 thou/uL (130-400); RBC Distribution Width 13.5 % (11.5-14.5); Red Blood Cell (RBC) Count 5.21 mill/uL (4.20-5.40); White Blood Cell (WBC) Count 10.6 thou/uL (4.8-10.8)
[2018-05-23 05:22] LABS: Anion Gap 11 mmol/L (10-20); BUN (Urea Nitrogen) 8 mg/dL (7.0-18.7); Calc. Creatinine Clearance 176 mL/min (70-130); Calcium 9.2 mg/dL (7.8-10.44); Carbon Dioxide 27 mmol/L (22-29); Chloride 102 mmol/L (98-107); Estimated GFR-MDRD 89; Glucose 235 mg/dL (70-105); Potassium 3.6 mmol/L (3.5-5.1); Sodium 136 mmol/L (136-145)
[2018-05-23] MEDS: Pregabalin 75 MG CAP PO SCH (09:13)
[2018-05-23] MEDS: Famotidine 20 MG TAB PO SCH (09:13)
[2018-05-23] MEDS: Insulin Glargine 75 UNITS in Pre-Filled Syringe 1 EACH SC SCH (10:54)
[2018-05-23] MEDS: HumaLOG 300 UNITS/3 ML VIAL SC PRN (11:00)
[2018-05-23 11:59] VITALS: BP 118/56; TEMP 98.3
--- NOTE | 2018-05-23 12:15 | NM ---
RADIONUCLIDE STRESS REST MYOCARDIAL PERFUSION SCAN WITH CT ATTENUATION CORRECTION AND SPECT IMAGING LEFT VENTRICULAR WALL MOTION EVALUATION AND EJECTION FRACTION: HISTORY: Chest pain. FINDINGS: LexiScan protocol. There is homogeneous uptake of radiotracer throughout the left ventricular myocard ium. No focal perfusion defect or reversibility. QGS analysis of gated SPECT images shows no focal wall motion abnormalities. Ejection fraction calculated at 71%. IMPRESSION: Normal myocardial perfusion scan. Normal left ventricular ejection fraction. POS: [facility]
--- NOTE | 2018-05-23 13:30 | PDOC.EVN ---
Event Note - Event Note Event Note: Pt seen and examined with Gege Mane PA-C. I have seen and evaluated the pateint and reviewed all documentations. I agree with the findings and plan as outlined in his note Stress test normal, pt being discharged with outpatient followup
--- NOTE | 2018-05-23 13:47 | DIS ---
DATE OF ADMISSION: 05/22/2018 DATE OF DISCHARGE: 05/23/2018. DISCHARGE DIAGNOSES: 1. Chest pain, noncardiac, resolved. 2. Asthma, stable. 3. Diabetes mellitus type 2, stable. 4. Hypertension, stable. 5. Lung nodule, stable. CONSULTATIONS: None. LABORATORY AND DIAGNOSTIC FINDINGS: WBC 10.6, RBC 5.21, hemoglobin 13.3. Sodium 136, potassium 3.6. Troponin is less than 0.010 x2. CTA of chest showed no CT evidence of pulmonary embolism, stable p ulmonary nodule in right upper lobe, minor fissure, stable from prior exam compared to study on 11/11, nodule measuring approximately 8 mm. HOSPITAL COURSE: The patient was admitted after presenting with acute chest pain and shortness of br eath, she has a history of diabetes mellitus type 2, asthma, hypertension, lung nodule, peripheral ne uropathy, and arthritis. She states that the chest pain came on suddenly and was very sharp and pres sure-like in nature, her chest pain then resolved suddenly. She had denied any nausea, dizziness, di aphoresis, or vomiting. Serial troponins were obtained; however, were found to be unremarkable x2. She then underwent stress test which was a 2-day stress test, which showed a normal myocardial perfus ion study with a normal left ventricular ejection fraction. Her ejection fraction was calculated at 71%. She had no further episodes of chest pain, shortness of breath for the remainder of hospital co urse. She was tolerating a diet without any acute complications. Vital signs remained stable. She was seen and examined prior to discharge and stress test findings along with other workup was explain ed to her, chest pain was a noncardiac etiology; however, it has resolved during hospital course. No further workup needed. She was recommended to follow up with her primary care physician, Faby ramirez, in 1-2 weeks post-discharge. She had verbalized her understanding of care plan and she was med ically stable for discharge on 05/23/2018. DISCHARGE MEDICATIONS: 1. Aspirin 81 mg daily. 2. Celebrex 100 mg tab twice daily. 3. Zyrtec 10 mg daily. 4. ProAir 2 puff inhalation every 4 hours as needed for wheezing. 5. Prempro 0.625 mg/2.5 mg tablet oral at nighttime. 6. NovoLog 10 units subcu 3 times daily with meals. 7. Lantus 75 units subcu twice daily. 8. DuoNeb 4 times daily as needed for shortness of breath. 9. Losartan 25 mg daily. 10. Lyrica 150 mg p.o. twice daily. 11. Ranitidine 150 mg 1 tablet daily. 12. Glipizide 10 mg daily. 13. Tramadol 50 mg every 8 hours as needed for pain. 14. Followup: The patient is to follow up with her primary care physician, Faby Lloyd, in 1-2 w eeks, she was advised to call later today and make an appointment. CONDITION ON DISCHARGE: Stable. ACTIVITY: No restrictions. DIET: Diabetic diet. CODE STATUS: FULL CODE. DISPOSITION: Home on 05/23/2018.
--- NOTE | 2018-05-31 12:11 | EKG ---
Test Reason : Blood Pressure : / mmHG Vent. Rate : 073 BPM Atrial Rate : 073 BPM P-R Int : 182 ms QRS Dur : 084 ms QT Int : 398 ms P-R-T Axes : -21 034 022 degrees QTc Int : 438 ms Normal sinus rhythm Normal ECG Confirmed by DEVIN SLATER ([id number]), writer editor RAYSHAWN DUARTE ([id number]) on 05/31/2018 12:11:12 PM Referred By: Confirmed By:DEVIN SLATER
== END 2018-05-23 14:01 | disposition home or self-care (01) ==
LOC: ERS 00:12 → 2SW 03:10 → INTOOBSV 03:10
PROVIDERS: ADMIT Internal Medicine; ATTEND Internal Medicine
DX: R07.89 Other chest pain (principal); E11.42 Type 2 diabetes mellitus with diabetic polyneuropathy; J45.909 Unspecified asthma, uncomplicated; M19.90 Unspecified osteoarthritis, unspecified site; R91.1 Solitary pulmonary nodule; Z79.4 Long term (current) use of insulin; Z79.899 Other long term (current) drug therapy; Z88.1 Allergy status to other antibiotic agents; Z88.8 Allergy status to other drugs, medicaments and biological substances
CPT/HCPCS: 36415; 36416; 71275; 78452; 80048; 80053; 82553; 83690; 84484; 85025; 90471; 90686; 93005; 93017; 96374; A9500; G0008; G0378; J1885; J2270; J2785

== ENCOUNTER 2018-10-19 03:58 | Observation (INO) | payer SELFPAY ==
[2018-10-19] MEDS ORDERED: Acetaminophen 500 MG TAB ONE (04:48)
[2018-10-19] MEDS ORDERED: Aspirin Chewable 81 MG TAB ONE (04:48)
[2018-10-19 04:55] LABS: ALT (SGPT) 33 U/L (8-55); AST (SGOT) 44 U/L (5-34); Albumin 3.6 g/dL (3.5-5.0); Alkaline Phosphatase 115 U/L (40-150); Anion Gap 14 mmol/L (10-20); BUN (Urea Nitrogen) 10 mg/dL (7.0-18.7); Bilirubin, Total 0.2 mg/dL (0.2-1.2); Calc. Creatinine Clearance 0 mL/min (70-130); Calcium 8.8 mg/dL (7.8-10.44); Carbon Dioxide 24 mmol/L (22-29); Chloride 102 mmol/L (98-107); Estimated GFR-MDRD 88; Globulin 3.2 g/dL (2.4-3.5); Glucose 287 mg/dL (70-105); Potassium 3.8 mmol/L (3.5-5.1); Protein, Total 6.8 g/dL (6.0-8.3); Sodium 136 mmol/L (136-145)
[2018-10-19 05:06] LABS: #Eosinphils 0.4 thou/uL (0.0-0.7); #Monocytes 0.6 thou/uL (0.11-0.59); #Neutrophils 8.3 thou/uL (1.40-6.50); %Basophils 0.3 % (0.0-1.0); %Eosinophils 3.5 % (0.0-10.0); %Monocytes 4.5 % (0.0-10.0); %Neutrophils 67.6 % (42.0-75.0); Hemoglobin 13.1 g/dL (12.0-16.0); Large Platelets SLIGHT; MDiff Complete? YES; Mean Corpuscular HGB CONC 33.5 g/dL (32.0-36.0); Mean Corpuscular Hemoglobin 26.7 pg (27.0-31.0); Mean Corpuscular Volume 79.7 fL (78.0-98.0); Mean Platelet Volume 10.9 fL (7.4-10.4); Platelet Count 118 thou/uL (130-400); Platelet Morphology Comment Appears Decreased; RBC Distribution Width 13.6 % (11.5-14.5); Red Blood Cell (RBC) Count 4.91 mill/uL (4.20-5.40); White Blood Cell (WBC) Count 12.3 thou/uL (4.8-10.8)
[2018-10-19] MEDS ORDERED: Lorazepam 1 MG TAB ONE (06:20)
[2018-10-19] MEDS ORDERED: Nitroglycerin 0.4 MG TAB (25 Tab Bottle) PO PRN (06:52)
[2018-10-19] MEDS ORDERED: Dextrose 50% Abboject 50 ML SYRINGE SLOW IVP PRN (06:52)
[2018-10-19] MEDS ORDERED: Dextrose 5% in Water 1,000 ML IV PRN (06:52)
[2018-10-19] MEDS ORDERED: Insulin Regular 300 UNITS/3 ML VIAL SC PRN ×2 (06:52)
[2018-10-19] MEDS ORDERED: Ondansetron ODT 4 MG TAB PO PRN (06:53)
[2018-10-19] MEDS ORDERED: Senokot S 8.6-50 MG TAB PO PRN (06:53)
[2018-10-19] MEDS ORDERED: Acetaminophen 325 MG TAB PO PRN (06:53)
[2018-10-19] MEDS ORDERED: Ondansetron PF 4 MG/2 ML Vial IVP PRN (06:53)
[2018-10-19] MEDS ORDERED: cloNIDine 0.1 MG TAB PO PRN (06:58)
[2018-10-19] MEDS ORDERED: Cyclobenzaprine 10 MG TAB PO PRN (06:58)
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
[2018-10-19 07:49] VITALS: BMI 42.0
[2018-10-19] MEDS ORDERED: Insulin Glargine 40 UNITS in Pre-Filled Syringe 1 EACH SC SCH (08:00)
[2018-10-19 08:21] LABS: Troponin I Less than 0.010 ng/mL (< 0.028)
[2018-10-19] MEDS ORDERED: Aspirin 325 mg Enteric Coated Tablet PO SCH (09:00)
--- NOTE | 2018-10-19 09:27 | RAD ---
CHEST 1 VIEW: Date: 10/19/18 HISTORY: Neck pain. COMPARISON: 11/17/16. FINDINGS: Borderline size heart. No confluent pneumonia, overt edema, or other acute process. IMPRESSION: No acute intrathoracic disease. Borderline size heart. POS: [facility]
[2018-10-19 11:00] LABS: Troponin I Less than 0.010 ng/mL (< 0.028)
[2018-10-19 15:46] VITALS: BP 119/56; TEMP 98.4
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
== END 2018-10-19 16:34 | disposition home or self-care (01) ==
LOC: ERS 03:58 → 2SW 06:20
PROVIDERS: ADMIT Internal Medicine; ATTEND Internal Medicine
DX: F41.9 Anxiety disorder, unspecified (principal); E11.42 Type 2 diabetes mellitus with diabetic polyneuropathy; I10 Essential (primary) hypertension; E66.9 Obesity, unspecified; Z68.41 Body mass index [BMI] 40.0-44.9, adult; F32.9 Major depressive disorder, single episode, unspecified; J45.20 Mild intermittent asthma, uncomplicated; E78.5 Hyperlipidemia, unspecified; Z90.721 Acquired absence of ovaries, unilateral; Z90.710 Acquired absence of both cervix and uterus; Z88.1 Allergy status to other antibiotic agents; Z79.4 Long term (current) use of insulin; Z79.82 Long term (current) use of aspirin; Z79.1 Long term (current) use of non-steroidal anti-inflammatories (NSAID); Z79.899 Other long term (current) drug therapy
CPT/HCPCS: 36415; 36416; 71045; 80053; 84484; 85025; 93005; 94760; G0378; J1825

== ENCOUNTER 2019-06-14 11:52 | Emergency (ER) | payer SELFPAY ==
--- NOTE | 2019-06-14 12:19 | RAD ---
RADIOGRAPH CHEST 2 VIEWS: DATE: 06/14/2019 HISTORY: 48-year-old female with cough, chest pain, and fever. FINDINGS: There is no airspace density, pulmonary edema, pleural effusion, pneumothorax, or cardiomegaly. IMPRESSION: No acute cardiopulmonary findings.
== END 2019-06-14 13:14 | disposition home or self-care (01) ==
LOC: ERS 11:52
DX: J20.9 Acute bronchitis, unspecified (principal); E11.40 Type 2 diabetes mellitus with diabetic neuropathy, unspecified; J45.909 Unspecified asthma, uncomplicated; M19.90 Unspecified osteoarthritis, unspecified site; F41.9 Anxiety disorder, unspecified; F32.9 Major depressive disorder, single episode, unspecified; Z79.4 Long term (current) use of insulin
CPT/HCPCS: 71046; 93005

== ENCOUNTER 2019-07-24 21:19 | Emergency (ER) | payer OTHER, SELFPAY ==
[2019-07-24] MEDS ORDERED: Ketorolac Tromethamine 30 MG/ML VIAL ONE (22:34)
[2019-07-24] MEDS ORDERED: HYDROcodone/Acetaminophen 10/325 mg Tablet ONE (22:50)
== END 2019-07-24 22:53 | disposition home or self-care (01) ==
LOC: ERS 21:19
DX: M54.10 Radiculopathy, site unspecified (principal); M54.2 Cervicalgia; E11.40 Type 2 diabetes mellitus with diabetic neuropathy, unspecified; J45.909 Unspecified asthma, uncomplicated; M19.90 Unspecified osteoarthritis, unspecified site; F41.9 Anxiety disorder, unspecified; F32.9 Major depressive disorder, single episode, unspecified; Z79.899 Other long term (current) drug therapy; Z79.4 Long term (current) use of insulin
CPT/HCPCS: 96372; 99283; J1885

== ENCOUNTER 2019-07-27 21:58 | Emergency (ER) | payer OTHER ==
[2019-07-27] MEDS ORDERED: diphenhydrAMINE 50 MG CAP ONE (22:46)
[2019-07-27] MEDS ORDERED: Famotidine 20 MG TAB ONE ×2 (22:46→22:49)
== END 2019-07-27 22:52 | disposition home or self-care (01) ==
LOC: ERS 21:58
DX: L29.9 Pruritus, unspecified (principal); T38.0X5A Adverse effect of glucocorticoids and synthetic analogues, initial encounter; E11.40 Type 2 diabetes mellitus with diabetic neuropathy, unspecified; J45.909 Unspecified asthma, uncomplicated; M19.90 Unspecified osteoarthritis, unspecified site; F41.9 Anxiety disorder, unspecified; F32.9 Major depressive disorder, single episode, unspecified; Z79.899 Other long term (current) drug therapy; Z79.4 Long term (current) use of insulin; Z79.52 Long term (current) use of systemic steroids
CPT/HCPCS: 99283; Q0163

== ENCOUNTER 2019-08-30 00:31 | Emergency (ER) | payer OTHER ==
[2019-08-30 01:04] LABS: Bacteria/HPF None Seen HPF (None Seen); Bilirubin Negative (Negative); Blood, Urine 2+ (Negative); Clarity Clear (Clear); Glucose, Urine (Dipstick) Greater than 1000 mg/dL (Negative); Leukocyte Negative Leu/uL (Negative); Nitrite Negative (Negative); Protein, Urine (Dipstick) Negative (Neg-Trace); Urobilinogen Normal mg/dL (Less than 2)
--- NOTE | 2019-08-30 07:04 | CT ---
PRELIMINARY REPORT/[facility]/AFTER HOURS PROCEDURE CT ABDOMEN AND PELVIS WITHOUT INTRAVENOUS CONTRAST: CLINICAL HISTORY: ER 13...PT REPORTS LOWER BACK PAIN x 1 WEEK, REPORTS RADIATION TO SUPRAPUBIC AREA TECHNIQUE: Axial computed tomography images of the abdomen and pelvis without intravenous contrast. CONTRAST: None. COMPARISON: None provided. FINDINGS: LUNG BASES: No basilar airspace consolidation or pleural effusion. LIVER: Mild hepatomegaly. GALLBLADDER AND BILE DUCTS: Suboptimal distention of the gallbladder. PANCREAS: Unremarkable. SPLEEN: Unremarkable. ADRENAL GLANDS: Unremarkable. KIDNEYS, URETERS, AND BLADDER: Unremarkable. No hydronephrosis or nephrolithiasis. No ureteral or beth dder calculi. STOMACH AND BOWEL: The distal colon is suboptimally distended, apparent wall thickening may be exagge rated secondary to under-distention, nevertheless, correlate for possible inflammation or soft tissue infiltration and consider follow-up. Moderate retained fecal material within the colon. Fat-containi ng umbilical hernia. No evidence of bowel herniation at the time of imaging. Mild diverticulosis with out evidence of acute diverticulitis. APPENDIX: No CT evidence for appendicitis. PERITONEUM: No free fluid. No free air. LYMPH NODES: No lymphadenopathy. REPRODUCTIVE: Unremarkable as visualized. VASCULATURE: No aortic aneurysm. ABDOMINAL WALL AND SOFT TISSUES: Unremarkable. BONES: Moderate osseous degenerative changes. Grade 1 anterolisthesis of L4 and L5. L4-5 disc osteoph yte complex with moderate spinal canal stenosis. Correlate clinically or with MRI. IMPRESSION: 1. Normal appendix. 2. L4-5 disc osteophyte complex with moderate spinal canal stenosis. Correlate clinically or with MRI . ELECTRONICALLY SIGNED BY: Alfred Lunsford MD Aug 30, 2019 2:15:14 AM PROCUREMENT INSPECTOR This report is intended for review by the ordering physician only, in accordance of law. If you recei ve this report in error, please call [facility] at [phone]. FINAL REPORT EMERGENT AFTER HOURS CT ABDOMEN AND PELVIS WITH CONTRAST: FINDINGS/IMPRESSION: I agree with the findings and impression given in the preliminary report per the [facility] phsen sician. No evidence of acute intra-abdominal/pelvic abnormality. CODE QA
== END 2019-08-30 03:19 | disposition home or self-care (01) ==
LOC: ERS 00:31
DX: M54.5 Low back pain (principal); E11.9 Type 2 diabetes mellitus without complications; F41.9 Anxiety disorder, unspecified; F32.9 Major depressive disorder, single episode, unspecified; M19.90 Unspecified osteoarthritis, unspecified site; J45.909 Unspecified asthma, uncomplicated; Z79.4 Long term (current) use of insulin; Z79.51 Long term (current) use of inhaled steroids; Z79.899 Other long term (current) drug therapy
CPT/HCPCS: 74176; 81003; 81015

== ENCOUNTER 2020-06-18 00:09 | Emergency (ER) | payer SELFPAY | END 2020-06-18 03:23 | disposition home or self-care (01) | LOC: ERS 00:09 | DX: M54.12 Radiculopathy, cervical region (principal) | CPT/HCPCS: 99283 ==

== ENCOUNTER 2020-08-16 00:40 | Emergency (ER) | payer OTHER, SELFPAY ==
[2020-08-16 01:09] LABS: Bilirubin Negative (Negative); Blood, Urine Negative (Negative); Clarity Clear (Clear); Glucose, Urine (Dipstick) Greater than 1000 mg/dL (Negative); Ketone, Urine Negative (Negative); Leukocyte Negative Leu/uL (Negative); Nitrite Negative (Negative); Protein, Urine (Dipstick) Negative (Neg-Trace); Specific Gravity, Urine 1.026 (1.002-1.036); Urobilinogen Normal mg/dL (Less than 2)
[2020-08-16 01:34] LABS: Pregnancy Test - Urine (BHCG) Negative (Negative); Pregu Control Background? CLEAR/WHITE (CLR/WHITE); Pregu Control Bar Appear? YES (CONTROL BAR); Specific Gravity 1.026 (1.002-1.036)
[2020-08-16 01:52] LABS: #Basophils 0.1 thou/uL (0.0-0.2); #Eosinphils 0.3 thou/uL (0.0-0.7); #Lymphocytes 3.2 thou/uL (1.20-3.40); #Monocytes 0.6 thou/uL (0.11-0.59); #Neutrophils 8.6 thou/uL (1.40-6.50); %Basophils 0.7 % (0.0-1.0); %Eosinophils 2.2 % (0.0-10.0); %Lymphocytes 25.2 % (21.0-51.0); %Monocytes 4.4 % (0.0-10.0); %Neutrophils 67.5 % (42.0-75.0); Hemoglobin 14.3 g/dL (12.0-16.0); Mean Corpuscular HGB CONC 33.7 g/dL (32.0-36.0); Mean Corpuscular Hemoglobin 27.2 pg (27.0-31.0); Mean Corpuscular Volume 80.8 fL (78.0-98.0); Mean Platelet Volume 10.8 fL (7.4-10.4); Platelet Count 136 thou/uL (130-400); RBC Distribution Width 13.6 % (11.5-14.5); Red Blood Cell (RBC) Count 5.24 mill/uL (4.20-5.40); White Blood Cell (WBC) Count 12.7 thou/uL (4.8-10.8)
[2020-08-16] MEDS ORDERED: Ondansetron PF 4 MG/2 ML Vial ONE (02:04)
[2020-08-16] MEDS ORDERED: Morphine 4 MG/ML VIAL ONE (02:04)
[2020-08-16 02:11] LABS: ALT (SGPT) 21 U/L (8-55); AST (SGOT) 27 U/L (5-34); Albumin 3.9 g/dL (3.5-5.0); Alkaline Phosphatase 85 U/L (40-110); Anion Gap 16 mmol/L (10-20); BUN (Urea Nitrogen) 15 mg/dL (7.0-18.7); Bilirubin, Total 0.2 mg/dL (0.2-1.2); Calc. Creatinine Clearance 0 mL/min (70-130); Calcium 9.6 mg/dL (7.8-10.44); Carbon Dioxide 24 mmol/L (22-29); Chloride 99 mmol/L (98-107); Globulin 4.3 g/dL (2.4-3.5); Glucose 287 mg/dL (70-105); Lipase 19 U/L (8-78); Potassium 4.4 mmol/L (3.5-5.1); Protein, Total 8.2 g/dL (6.0-8.3); Sodium 135 mmol/L (136-145)
--- NOTE | 2020-08-16 07:52 | CT ---
PRELIMINARY REPORT/[facility]/EMERGENCY AFTER HOURS PROCEDURE: EXAM: CT Abdomen and Pelvis with Intravenous Contrast CLINICAL HISTORY: Patient reports that over the past several days she has had lower abdominal pain that she states is n ow worse in the right lower abdomen. She endorses associated nausea. She notes that she is going to t he bathroom more frequently and has increased urgency but is denying any real dysuria. TECHNIQUE: Axial computed tomography images of the abdomen and pelvis with intravenous contrast. CONTRAST: With; ISOVUE 370,90mL COMPARISON: CT - CT STONE PROTOCOL - 08/30/2019 01:25 AM SECURITY SYSTEMS SALES REPRESENTATIVE FINDINGS: LUNG BASES: No basilar airspace consolidation or pleural effusion. LIVER: Liver is mildly enlarged up to 17.9 cm in craniocaudal dimension. GALLBLADDER AND BILE DUCTS: Unremarkable. No calcified stone. No ductal dilation. PANCREAS: Unremarkable. SPLEEN: Unremarkable. ADRENAL GLANDS: Unremarkable. KIDNEYS, URETERS, AND BLADDER: Unremarkable. No hydronephrosis or nephrolithiasis. No ureteral or bladder calculi. STOMACH AND BOWEL: Colonic diverticulosis without evidence of diverticulitis. No bowel obstruction. APPENDIX: Normal appendix. PERITONEUM: No free fluid. No free air. LYMPH NODES: No lymphadenopathy. REPRODUCTIVE: Status post hysterectomy. VASCULATURE: No aortic aneurysm. BONES: Mild degenerative change of the spine with stable anterolisthesis of L4 and L5. ABDOMINAL WALL AND SOFT TISSUES: Tiny fat-containing umbilical hernia. IMPRESSION: No acute intra-abdominal or pelvic abnormality. ELECTRONICALLY SIGNED BY: Suzette Garrido MD Aug 16, 2020 2:24:40 AM SECURITY SYSTEMS SALES REPRESENTATIVE This report is intended for review by the ordering physician only, in accordance of law. If you recei ve this report in error, please call [facility] at [phone]. FINAL REPORT EMERGENCY AFTER HOURS CT ABDOMEN AND PELVIS WITH CONTRAST: COMPARISON: 07/04/2014. FINDINGS/IMPRESSION: I agree with the findings and impression given in the preliminary report per [facility] physici an. No evidence of acute intra-abdominal/pelvic abnormality. POS: EAA
[2020-08-16] MEDS ORDERED: Iopamidol-370 76% 500 ML 1 ML ONE (13:44)
== END 2020-08-16 03:13 | disposition home or self-care (01) ==
LOC: ERS 00:40
DX: R10.31 Right lower quadrant pain (principal); R11.0 Nausea; E11.9 Type 2 diabetes mellitus without complications; E78.5 Hyperlipidemia, unspecified; E78.00 Pure hypercholesterolemia, unspecified
CPT/HCPCS: 36415; 74177; 80053; 81003; 81025; 83690; 85025; 96374; 96375; J2270; J2405

== ENCOUNTER 2020-10-30 22:54 | Emergency (ER) | payer OTHER ==
[2020-10-31] MEDS ORDERED: Ketorolac Tromethamine 30 MG/ML VIAL ONE (00:42)
[2020-10-31] MEDS ORDERED: Metoclopramide HCl 10 MG/2 ML VIAL ONE (00:42)
== END 2020-10-31 02:22 | disposition home or self-care (01) ==
LOC: ERS 22:54
DX: R51.9 Headache, unspecified (principal); E11.9 Type 2 diabetes mellitus without complications; E78.5 Hyperlipidemia, unspecified; E78.00 Pure hypercholesterolemia, unspecified; F41.9 Anxiety disorder, unspecified
CPT/HCPCS: 96365; 96375; J1885; J2765

== ENCOUNTER 2021-01-10 01:36 | Emergency (ER) | payer OTHER ==
[2021-01-10] MEDS ORDERED: Lorazepam 2 MG/ML VIAL ONE (02:52)
== END 2021-01-10 03:57 | disposition home or self-care (01) ==
LOC: ERS 01:36
DX: F41.9 Anxiety disorder, unspecified (principal); E11.9 Type 2 diabetes mellitus without complications; E78.5 Hyperlipidemia, unspecified; E78.00 Pure hypercholesterolemia, unspecified; M19.90 Unspecified osteoarthritis, unspecified site
CPT/HCPCS: 96374; J2060

== ENCOUNTER 2021-06-13 21:32 | Emergency (ER) | payer OTHER ==
[~2021-06-13 21:32] MED LIST changes: -ISOVUE-370 76%-LOCM 1 ML ONE; +Iopamidol-370 76% 500 ML 1 ML ONE
[2021-06-13 21:58] LABS: Bilirubin Negative (Negative); Blood, Urine Negative (Negative); Clarity Clear (Clear); Glucose, Urine (Dipstick) Greater than 1000 mg/dL (Negative); Ketone, Urine Negative (Negative); Leukocyte Negative Leu/uL (Negative); Nitrite Negative (Negative); Protein, Urine (Dipstick) Negative (Neg-Trace); Specific Gravity, Urine 1.015 (1.002-1.036); Urobilinogen Normal mg/dL (Less than 2); pH, Urine 5.5 (5.0-9.0)
[2021-06-13 22:11] LABS: #Eosinphils 0.1 thou/uL (0.0-0.7); #Lymphocytes 1.3 thou/uL (1.20-3.40); #Monocytes 0.2 thou/uL (0.11-0.59); #Neutrophils 10.6 thou/uL (1.40-6.50); %Eosinophils 0.5 % (0.0-10.0); %Lymphocytes 10.5 % (21.0-51.0); Hemoglobin 14.8 g/dL (12.0-16.0); Mean Corpuscular HGB CONC 33.3 g/dL (32.0-36.0); Mean Corpuscular Hemoglobin 27.7 pg (27.0-31.0); Mean Corpuscular Volume 83.2 fL (78.0-98.0); Mean Platelet Volume 10.4 fL (7.4-10.4); Platelet Count 127 thou/uL (130-400); RBC Distribution Width 13.8 % (11.5-14.5); Red Blood Cell (RBC) Count 5.35 mill/uL (4.20-5.40); White Blood Cell (WBC) Count 12.2 thou/uL (4.8-10.8)
[2021-06-13 22:12] LABS: BHCG - Serum Negative (NEGATIVE); Pregs Control Background? CLEAR/WHITE (CLR/WHITE); Pregs Control Bar Appear? YES (CONTROL BAR)
[2021-06-13 22:26] LABS: ALT (SGPT) 67 U/L (8-55); AST (SGOT) 119 U/L (5-34); Alkaline Phosphatase 79 U/L (40-110); Anion Gap 13 mmol/L (10-20); BUN (Urea Nitrogen) 13 mg/dL (7.0-18.7); Bilirubin, Total 0.5 mg/dL (0.2-1.2); Calc. Creatinine Clearance 0 mL/min (70-130); Calcium 9.3 mg/dL (7.8-10.44); Carbon Dioxide 26 mmol/L (22-29); Chloride 102 mmol/L (98-107); Globulin 3.3 g/dL (2.4-3.5); Glucose 202 mg/dL (70-105); Lipase 22 U/L (8-78); Protein, Total 7.3 g/dL (6.0-8.3); Sodium 137 mmol/L (136-145)
[2021-06-13] MEDS ORDERED: Ondansetron PF 4 MG/2 ML Vial ONE (23:15)
[2021-06-13] MEDS ORDERED: Morphine 4 MG/ML VIAL ONE (23:20)
== END 2021-06-14 00:48 | disposition home or self-care (01) ==
LOC: ERS 21:32
DX: K46.9 Unspecified abdominal hernia without obstruction or gangrene (principal); R19.7 Diarrhea, unspecified; E78.5 Hyperlipidemia, unspecified; E78.00 Pure hypercholesterolemia, unspecified; M19.90 Unspecified osteoarthritis, unspecified site; E11.9 Type 2 diabetes mellitus without complications; Z79.4 Long term (current) use of insulin; Z79.899 Other long term (current) drug therapy
CPT/HCPCS: 36415; 74177; 80053; 81003; 83690; 84703; 85025; 96374; 96375; J2270; J2405; Q9967

== ENCOUNTER 2021-08-08 13:32 | Emergency (ER) | payer OTHER | END 2021-08-08 15:30 | disposition home or self-care (01) | LOC: ERS 13:32 | DX: S86.912A Strain of unspecified muscle(s) and tendon(s) at lower leg level, left leg, initial encounter (principal); X50.9XXA Other and unspecified overexertion or strenuous movements or postures, initial encounter; E11.9 Type 2 diabetes mellitus without complications; E78.5 Hyperlipidemia, unspecified; E78.00 Pure hypercholesterolemia, unspecified; M19.90 Unspecified osteoarthritis, unspecified site ==

== ENCOUNTER 2021-08-20 09:04 | Emergency (ER) | payer OTHER | END 2021-08-20 11:02 | disposition home or self-care (01) | LOC: ERS 09:04 | DX: U07.1 COVID-19 (principal); E11.9 Type 2 diabetes mellitus without complications; E78.5 Hyperlipidemia, unspecified; E78.00 Pure hypercholesterolemia, unspecified; M19.90 Unspecified osteoarthritis, unspecified site; Z79.82 Long term (current) use of aspirin; Z79.52 Long term (current) use of systemic steroids; Z79.899 Other long term (current) drug therapy | CPT/HCPCS: 99283 ==

== ENCOUNTER 2021-12-13 07:28 | Outpatient (CLI) | payer OTHER | END 2021-12-13 07:29 | disposition home or self-care (01) | LOC: ULT 07:28 | PROVIDERS: ATTEND Surgery | DX: R10.11 Right upper quadrant pain (principal) | CPT/HCPCS: 76705 ==

== ENCOUNTER 2022-01-05 10:15 | Emergency (ER) | payer OTHER ==
[2022-01-05] MEDS ORDERED: HYDROcodone/Acetaminophen 7.5/325 mg Tablet ONE (11:19)
== END 2022-01-05 11:30 | disposition home or self-care (01) ==
LOC: ERS 10:15
DX: E11.40 Type 2 diabetes mellitus with diabetic neuropathy, unspecified (principal); M19.90 Unspecified osteoarthritis, unspecified site; Z79.82 Long term (current) use of aspirin; Z79.4 Long term (current) use of insulin; Z79.899 Other long term (current) drug therapy
CPT/HCPCS: 99283

== ENCOUNTER 2022-01-09 07:32 | Outpatient (CLI) | payer OTHER | END 2022-01-09 07:33 | disposition home or self-care (01) | LOC: NM 07:32 | PROVIDERS: ATTEND Surgery | DX: R10.11 Right upper quadrant pain (principal) | CPT/HCPCS: 78227; A9537 ==

== ENCOUNTER 2022-06-03 12:07 | Emergency (ER) | payer OTHER ==
[2022-06-03 13:04] LABS: #Lymphocytes 1.2 thou/uL (1.20-3.40); #Monocytes 0.3 thou/uL (0.11-0.59); #Neutrophils 7.2 thou/uL (1.40-6.50); %Basophils 0.2 % (0.0-1.0); %Eosinophils 0.5 % (0.0-10.0); %Monocytes 3.8 % (0.0-10.0); %Neutrophils 81.5 % (42.0-75.0); Hemoglobin 15.2 g/dL (12.0-16.0); Mean Corpuscular HGB CONC 32.8 g/dL (32.0-36.0); Mean Corpuscular Hemoglobin 27.5 pg (27.0-31.0); Mean Corpuscular Volume 83.9 fl (78.0-98.0); Mean Platelet Volume 10.7 fL (7.4-10.4); Platelet Count 119 thou/uL (130-400); RBC Distribution Width 14.7 % (11.5-14.5); Red Blood Cell (RBC) Count 5.53 mill/uL (4.20-5.40); White Blood Cell (WBC) Count 8.8 thou/uL (4.8-10.8)
[2022-06-03 13:18] LABS: ALT (SGPT) 30 U/L (8-55); AST (SGOT) 42 U/L (5-34); Albumin 3.9 g/dL (3.5-5.0); Alkaline Phosphatase 86 U/L (40-110); Anion Gap 15 mmol/L (10-20); BUN (Urea Nitrogen) 9 mg/dL (7.0-18.7); Bilirubin, Total 0.4 mg/dL (0.2-1.2); Calc. Creatinine Clearance 0 mL/min (70-130); Carbon Dioxide 23 mmol/L (22-29); Chloride 103 mmol/L (98-107); Estimated GFR 85; Globulin 3.7 g/dL (2.4-3.5); Glucose 268 mg/dL (70-105); Lipase 15 U/L (8-78); Potassium 4.1 mmol/L (3.5-5.1); Protein, Total 7.6 g/dL (6.0-8.3); Sodium 137 mmol/L (136-145)
[2022-06-03 13:21] LABS: BHCG - Serum Negative (NEGATIVE); Pregs Control Background? CLEAR/WHITE (CLR/WHITE); Pregs Control Bar Appear? YES (CONTROL BAR)
[2022-06-03] MEDS ORDERED: Iopamidol-370 76% 500 ML 1 ML ONE (13:54)
[2022-06-03 14:18] LABS: Bilirubin Negative (Negative); Blood, Urine Negative (Negative); Clarity Clear (Clear); Glucose, Urine (Dipstick) Greater than 1000 mg/dL (Negative); Ketone, Urine Negative (Negative); Leukocyte Negative Leu/uL (Negative); Nitrite Negative (Negative); Protein, Urine (Dipstick) Negative (Neg-Trace); Urobilinogen Normal mg/dL (Less than 2); pH, Urine 5.5 (5.0-9.0)
[2022-06-03] MEDS ORDERED: Ondansetron PF 4 MG/2 ML Vial ONE (14:26)
[2022-06-03] MEDS ORDERED: Ketorolac Tromethamine 30 MG/ML VIAL ONE (14:26)
[2022-06-03] MEDS ORDERED: Morphine 4 MG/ML VIAL ONE (14:26)
[2022-06-03 14:43] LABS: SARS-CoV-2 NAA Rapid Test Not Detected (NotDetected)
[2022-06-03] MEDS ORDERED: Pantoprazole 40 MG VIAL ONE (18:56)
== END 2022-06-03 18:19 | disposition home or self-care (01) ==
LOC: ERS 12:07
DX: R10.9 Unspecified abdominal pain (principal); R11.2 Nausea with vomiting, unspecified; E11.9 Type 2 diabetes mellitus without complications; Z20.822 Contact with and (suspected) exposure to COVID-19
CPT/HCPCS: 36415; 36416; 74177; 76705; 80053; 81003; 83690; 84703; 85025; 96374; 96375; C9113; J1885; J2270; J2405; Q9967

== ENCOUNTER 2022-08-20 22:06 | Emergency (ER) | payer OTHER, SELFPAY ==
[2022-08-20 22:46] LABS: #Eosinphils 0.2 thou/uL (0.0-0.7); #Lymphocytes 2.4 thou/uL (1.20-3.40); #Monocytes 0.5 thou/uL (0.11-0.59); #Neutrophils 8.1 thou/uL (1.40-6.50); %Basophils 0.1 % (0.0-1.0); %Eosinophils 1.9 % (0.0-10.0); %Lymphocytes 21.6 % (21.0-51.0); %Monocytes 4.5 % (0.0-10.0); %Neutrophils 71.9 % (42.0-75.0); Hemoglobin 13.7 g/dL (12.0-16.0); Mean Corpuscular HGB CONC 33.2 g/dL (32.0-36.0); Mean Corpuscular Hemoglobin 27.2 pg (27.0-31.0); Mean Corpuscular Volume 82.1 fl (78.0-98.0); Platelet Count 133 10x3/uL (130-400); RBC Distribution Width 13.8 % (11.5-14.5); Red Blood Cell (RBC) Count 5.05 mill/uL (4.20-5.40); White Blood Cell (WBC) Count 11.3 10x3/uL (4.8-10.8)
[2022-08-20 22:51] LABS: BHCG - Serum Negative (NEGATIVE); Pregs Control Background? CLEAR/WHITE (CLR/WHITE); Pregs Control Bar Appear? YES (CONTROL BAR)
[2022-08-20 23:07] LABS: ALT (SGPT) 9 U/L (8-55); AST (SGOT) 17 U/L (5-34); Albumin 3.8 g/dL (3.5-5.0); Alkaline Phosphatase 93 U/L (40-110); Anion Gap 14 mmol/L (10-20); BUN (Urea Nitrogen) 12 mg/dL (7.0-18.7); Bilirubin, Total 0.3 mg/dL (0.2-1.2); Calc. Creatinine Clearance 0 mL/min (70-130); Carbon Dioxide 26 mmol/L (22-29); Chloride 100 mmol/L (98-107); Estimated GFR 86; Globulin 3.8 g/dL (2.4-3.5); Glucose 290 mg/dL (70-105); Potassium 4.2 mmol/L (3.5-5.1); Protein, Total 7.6 g/dL (6.0-8.3); Sodium 136 mmol/L (136-145)
[2022-08-21 01:34] LABS: Bilirubin Negative (Negative); Blood, Urine Negative (Negative); Clarity Clear (Clear); Glucose, Urine (Dipstick) Greater than 1000 mg/dL (Negative); Ketone, Urine Trace mg/dL (Negative); Leukocyte Negative Leu/uL (Negative); Nitrite Negative (Negative); Protein, Urine (Dipstick) Negative (Neg-Trace); Specific Gravity, Urine 1.027 (1.002-1.036); Urobilinogen Normal mg/dL (Less than 2); pH, Urine 5.5 (5.0-9.0)
[2022-08-21] MEDS ORDERED: Ketorolac Tromethamine 30 MG/ML VIAL ONE (03:05)
== END 2022-08-21 05:40 | disposition home or self-care (01) ==
LOC: ERS 22:06
DX: K59.00 Constipation, unspecified (principal); E11.65 Type 2 diabetes mellitus with hyperglycemia; E78.5 Hyperlipidemia, unspecified; D72.829 Elevated white blood cell count, unspecified; Z79.4 Long term (current) use of insulin; Z79.899 Other long term (current) drug therapy
CPT/HCPCS: 36415; 74177; 80053; 81003; 84703; 85025; 96374; J1885; Q9967

== ENCOUNTER 2022-09-26 22:27 | Emergency (ER) | payer OTHER ==
[2022-09-27] MEDS ORDERED: Orphenadrine Citrate 60 MG/2 ML VIAL ONE (03:29)
== END 2022-09-27 04:26 | disposition home or self-care (01) ==
LOC: ERS 22:27
DX: M54.31 Sciatica, right side (principal); E11.9 Type 2 diabetes mellitus without complications; E78.5 Hyperlipidemia, unspecified; Z79.82 Long term (current) use of aspirin; Z79.4 Long term (current) use of insulin
CPT/HCPCS: 96372; J2360

== ENCOUNTER 2023-04-11 21:27 | Emergency (ER) | payer OTHER, SELFPAY ==
[2023-04-11 22:11] LABS: #Basophils 0.1 thou/uL (0.0-0.2); #Eosinphils 0.3 thou/uL (0.0-0.7); #Monocytes 0.5 thou/uL (0.11-0.59); #Neutrophils 6.5 thou/uL (1.40-6.50); %Basophils 0.5 % (0.0-1.0); %Eosinophils 2.9 % (0.0-10.0); %Lymphocytes 30.6 % (21.0-51.0); %Monocytes 5.1 % (0.0-10.0); %Neutrophils 60.4 % (42.0-75.0); Hematocrit 40.2 % (36.0-47.0); Hemoglobin 13.1 g/dL (12.0-16.0); Mean Corpuscular HGB CONC 32.6 g/dL (32.0-36.0); Mean Corpuscular Hemoglobin 26.9 pg (27.0-31.0); Mean Corpuscular Volume 82.5 fl (78.0-98.0); Mean Platelet Volume 12.8 fL (7.4-10.4); Platelet Count 127 10x3/uL (130-400); RBC Distribution Width 14.9 % (11.5-14.5); Red Blood Cell (RBC) Count 4.87 mill/uL (4.20-5.40); White Blood Cell (WBC) Count 10.7 10x3/uL (4.8-10.8)
[2023-04-11 22:50] LABS: ALT (SGPT) 19 U/L (8-55); Albumin 3.6 g/dL (3.5-5.0); Alkaline Phosphatase 88 U/L (40-110); Anion Gap 13 mmol/L (10-20); BUN (Urea Nitrogen) 10 mg/dL (7.0-18.7); Bilirubin, Total Less than 0.2 mg/dL (0.2-1.2); Calc. Creatinine Clearance 0 mL/min (70-130); Calcium 9.1 mg/dL (7.8-10.44); Carbon Dioxide 20 mmol/L (22-29); Chloride 104 mmol/L (98-107); Estimated GFR 81; Globulin 3.6 g/dL (2.4-3.5); Glucose 235 mg/dL (70-105); Lipase 31 U/L (8-78); Potassium 3.9 mmol/L (3.5-5.1); Protein, Total 7.2 g/dL (6.0-8.3); Sodium 133 mmol/L (136-145)
[2023-04-12 00:01] LABS: Bacteria/HPF None Seen HPF (None Seen); Bilirubin Negative (Negative); Blood, Urine Negative (Negative); CAUTI Indications for Culture Pelvic or flank pain; Clarity Clear (Clear); Glucose, Urine (Dipstick) Greater than 1000 mg/dL (Negative); Ketone, Urine Negative (Negative); Leukocyte Negative Leu/uL (Negative); Nitrite Negative (Negative); Protein, Urine (Dipstick) Negative (Neg-Trace); RBC/HPF 0-3 HPF (0-3); Specific Gravity, Urine 1.025 (1.002-1.036); Squamous Epithelial 0-3 HPF (0-3); Urobilinogen Normal mg/dL (Less than 2)
[2023-04-12 00:03] LABS: Urine Culture Reflex No No
[2023-04-12 02:25] LABS: AST (SGOT) 27 U/L (5-34)
== END 2023-04-12 00:41 | disposition home or self-care (01) ==
LOC: ERS 21:27
DX: R10.12 Left upper quadrant pain (principal); R11.0 Nausea; E11.9 Type 2 diabetes mellitus without complications; E78.5 Hyperlipidemia, unspecified; Z79.899 Other long term (current) drug therapy; Z79.82 Long term (current) use of aspirin; Z79.4 Long term (current) use of insulin
CPT/HCPCS: 36415; 74176; 80053; 81001; 82010; 83690; 85025

== ENCOUNTER 2023-07-16 21:50 | Emergency (ER) | payer OTHER ==
[2023-07-16 22:31] LABS: Bacteria/HPF 2+ HPF (None Seen); Bilirubin Negative (Negative); Blood, Urine Negative (Negative); CAUTI Indications for Culture Dysuria,urgency,freq; Clarity Clear (Clear); Glucose, Urine (Dipstick) Greater than 1000 mg/dL (Negative); Ketone, Urine Trace mg/dL (Negative); Leukocyte 25 Leu/uL (Negative); Nitrite Negative (Negative); Protein, Urine (Dipstick) Negative (Neg-Trace); RBC/HPF 0-3 HPF (0-3); Specific Gravity, Urine 1.025 (1.002-1.036); Squamous Epithelial 0-3 HPF (0-3); Urobilinogen Normal mg/dL (Less than 2); pH, Urine 5.5 (5.0-9.0)
[2023-07-16 22:33] LABS: Urine Culture Reflex Yes Yes
[2023-07-16 22:34] LABS: Pregnancy Test - Urine (BHCG) Negative (Negative); Pregu Control Background? CLEAR/WHITE (CLR/WHITE); Pregu Control Bar Appear? YES (CONTROL BAR); Specific Gravity 1.025 (1.002-1.036)
[2023-07-16 23:02] LABS: #Basophils 0.1 thou/uL (0.0-0.2); #Eosinphils 0.2 thou/uL (0.0-0.7); #Monocytes 0.6 thou/uL (0.11-0.59); #Neutrophils 5.5 thou/uL (1.40-6.50); %Basophils 0.5 % (0.0-1.0); %Eosinophils 2.1 % (0.0-10.0); %Lymphocytes 31.6 % (21.0-51.0); %Monocytes 6.3 % (0.0-10.0); %Neutrophils 59.2 % (42.0-75.0); Hematocrit 40.9 % (36.0-47.0); Hemoglobin 13.5 g/dL (12.0-16.0); Mean Corpuscular Hemoglobin 27.1 pg (27.0-31.0); Mean Corpuscular Volume 82.1 fl (78.0-98.0); Mean Platelet Volume 12.7 fL (7.4-10.4); Platelet Count 116 10x3/uL (130-400); RBC Distribution Width 15.4 % (11.5-14.5); Red Blood Cell (RBC) Count 4.98 mill/uL (4.20-5.40); White Blood Cell (WBC) Count 9.3 10x3/uL (4.8-10.8)
[2023-07-16 23:23] LABS: ALT (SGPT) 18 U/L (8-55); AST (SGOT) 21 U/L (5-34); Albumin 3.8 g/dL (3.5-5.0); Alkaline Phosphatase 83 U/L (40-110); Anion Gap 14 mmol/L (10-20); BUN (Urea Nitrogen) 15 mg/dL (7.0-18.7); Bilirubin, Total 0.3 mg/dL (0.2-1.2); Calc. Creatinine Clearance 0 mL/min (70-130); Calcium 9.1 mg/dL (7.8-10.44); Carbon Dioxide 22 mmol/L (22-29); Chloride 106 mmol/L (98-107); Estimated GFR 79; Globulin 3.6 g/dL (2.4-3.5); Glucose 206 mg/dL (70-105); Lipase 28 U/L (8-78); Potassium 4.2 mmol/L (3.5-5.1); Protein, Total 7.4 g/dL (6.0-8.3); Sodium 138 mmol/L (136-145)
[2023-07-16 23:27] LABS: Troponin I Less than 0.010 ng/mL (< 0.028)
[2023-07-17] MEDS ORDERED: Ondansetron PF 4 MG/2 ML Vial ONE (00:14)
[2023-07-17] MEDS ORDERED: Morphine 4 MG/ML VIAL ONE (00:14)
== END 2023-07-17 02:20 | disposition home or self-care (01) ==
LOC: ERS 21:50
DX: N39.0 Urinary tract infection, site not specified (principal); A60.00 Herpesviral infection of urogenital system, unspecified; E78.5 Hyperlipidemia, unspecified; E11.9 Type 2 diabetes mellitus without complications; Z79.4 Long term (current) use of insulin
CPT/HCPCS: 36415; 74177; 80053; 81001; 81025; 83690; 84484; 85025; 87077; 87086; 87186; 93005; 96374; 96375; J2270; J2405

== ENCOUNTER 2024-03-21 12:22 | Emergency (ER) | payer OTHER ==
[2024-03-21] MEDS ORDERED: diphenhydrAMINE 50 MG/ML VIAL ONE (13:35)
[2024-03-21] MEDS ORDERED: Ketorolac Tromethamine 30 MG (1 mL) VIAL ONE (13:35)
[2024-03-21] MEDS ORDERED: Acetaminophen 500 MG TAB ONE (13:35)
[2024-03-21] MEDS ORDERED: Metoclopramide HCl 10 MG (2 mL) VIAL ONE (13:35)
== END 2024-03-21 14:40 | disposition home or self-care (01) ==
LOC: ERS 12:22
DX: R51.9 Headache, unspecified (principal); E11.9 Type 2 diabetes mellitus without complications
CPT/HCPCS: 70450; 96374; 96375; J1200; J1885; J2765

== ENCOUNTER 2024-06-12 10:02 | Emergency (ER) | payer OTHER ==
[2024-06-12] MEDS ORDERED: Aspirin Chewable 81 MG TAB ONE (10:37)
[2024-06-12] MEDS ORDERED: Morphine 2 MG/ML VIAL ONE (11:14)
[2024-06-12 11:45] LABS: #Basophils Less than 0.03 10x3/uL (0.0-0.2); %Basophils 0.3 % (0.0-1.0); %Eosinophils 1.7 % (0.0-10.0); %Lymphocytes 28.1 % (21.0-51.0); %Monocytes 4.8 % (0.0-10.0); %Neutrophils 64.8 % (42.0-75.0); Hematocrit 39.3 % (36.0-47.0); Hemoglobin 13.3 g/dL (12.0-16.0); Mean Corpuscular HGB CONC 33.8 g/dL (32.0-36.0); Mean Corpuscular Hemoglobin 26.6 pg (27.0-31.0); Mean Corpuscular Volume 78.6 fL (78.0-98.0); Mean Platelet Volume 12.3 fL (7.4-10.4); Platelet Count 106 10x3/uL (130-400); RBC Distribution Width 15.4 % (11.5-14.5)
[2024-06-12 11:49] LABS: Bilirubin Negative (Negative); Blood, Urine Negative (Negative); CAUTI Indications for Culture Pelvic or flank pain; Clarity Clear (Clear); Glucose, Urine (Dipstick) Greater than 1000 mg/dL (Negative); Ketone, Urine Negative (Negative); Leukocyte Negative Leu/uL (Negative); Nitrite Negative (Negative); Protein, Urine (Dipstick) Negative (Neg-Trace); RBC/HPF 0-3 HPF (0-3); Squamous Epithelial 0-3 HPF (0-3); Urobilinogen Normal mg/dL (Less than 2); WBC/HPF 0-3 HPF (0-3); pH, Urine 5.5 (5.0-9.0)
[2024-06-12 11:50] LABS: Bacteria/HPF 1+ HPF (None Seen)
[2024-06-12 11:51] LABS: Urine Culture Reflex No No
[2024-06-12 12:09] LABS: Troponin I Less than 0.010 ng/mL (< 0.028)
[2024-06-12 12:22] LABS: ALT (SGPT) 26 U/L (8-55); AST (SGOT) 34 U/L (5-34); Albumin 3.2 g/dL (3.5-5.0); Alkaline Phosphatase 66 U/L (40-110); Anion Gap 14 mmol/L (10-20); BUN (Urea Nitrogen) 13 mg/dL (9.8-20.1); Bilirubin, Total 0.4 mg/dL (0.2-1.2); Calc. Creatinine Clearance 0 mL/min (70-130); Calcium 8.7 mg/dL (7.8-10.44); Carbon Dioxide 22 mmol/L (22-29); Chloride 105 mmol/L (98-107); Estimated GFR 101; Globulin 3.8 g/dL (2.4-3.5); Glucose 139 mg/dL (70-105); Potassium 3.9 mmol/L (3.5-5.1); Sodium 137 mmol/L (136-145)
[2024-06-12] MEDS ORDERED: Iopamidol-370 76% 500 ML MDV (1 ML CHARGE) ONE (14:52)
== END 2024-06-12 14:57 | disposition home or self-care (01) ==
LOC: ERS 10:02
DX: Z55.6 Problems related to health literacy (principal); R07.89 Other chest pain; E11.9 Type 2 diabetes mellitus without complications; E78.5 Hyperlipidemia, unspecified; Z79.84 Long term (current) use of oral hypoglycemic drugs; Z79.4 Long term (current) use of insulin; Z79.899 Other long term (current) drug therapy
CPT/HCPCS: 36415; 71045; 71275; 80053; 81001; 84484; 85025; 85379; 93005; 96374; J2272; Q9967

== ENCOUNTER 2024-06-28 05:39 | Emergency (ER) | payer OTHER ==
[2024-06-28] MEDS ORDERED: Ondansetron PF 4 MG/2 ML Vial ONE (05:55)
[2024-06-28 06:27] LABS: #Basophils 0.03 10x3/uL (0.0-0.2); %Basophils 0.3 % (0.0-1.0); %Eosinophils 2.2 % (0.0-10.0); %Lymphocytes 39.7 % (21.0-51.0); %Neutrophils 52.5 % (42.0-75.0); Hematocrit 41.7 % (36.0-47.0); Hemoglobin 13.8 g/dL (12.0-16.0); Mean Corpuscular HGB CONC 33.1 g/dL (32.0-36.0); Mean Corpuscular Hemoglobin 26.2 pg (27.0-31.0); Mean Corpuscular Volume 79.1 fL (78.0-98.0); Mean Platelet Volume 11.9 fL (7.4-10.4); Platelet Count 124 10x3/uL (130-400); RBC Distribution Width 15.5 % (11.5-14.5); Red Blood Cell (RBC) Count 5.27 mill/uL (4.20-5.40)
[2024-06-28 06:32] LABS: BHCG - Serum Negative (NEGATIVE); Pregs Control Bar Appear? YES (CONTROL BAR)
[2024-06-28 06:33] LABS: Pregs Control Background? CLEAR/WHITE (CLR/WHITE)
[2024-06-28 06:39] LABS: ALT (SGPT) 29 U/L (8-55); AST (SGOT) 33 U/L (5-34); Albumin 3.5 g/dL (3.5-5.0); Alkaline Phosphatase 73 U/L (40-110); Anion Gap 14 mmol/L (10-20); BUN (Urea Nitrogen) 11 mg/dL (9.8-20.1); Bilirubin, Total 0.3 mg/dL (0.2-1.2); Calc. Creatinine Clearance 0 mL/min (70-130); Carbon Dioxide 24 mmol/L (22-29); Chloride 104 mmol/L (98-107); Estimated GFR 93; Globulin 4.2 g/dL (2.4-3.5); Glucose 190 mg/dL (70-105); Potassium 3.8 mmol/L (3.5-5.1); Protein, Total 7.7 g/dL (6.0-8.3); Sodium 138 mmol/L (136-145)
[2024-06-28 06:44] LABS: Troponin I Less than 0.010 ng/mL (< 0.028)
[2024-06-28] MEDS ORDERED: Acetaminophen 500 MG TAB ONE (06:44)
[2024-06-28] MEDS ORDERED: Meclizine HCl 25 MG TAB ONE (06:44)
[2024-06-28 08:41] LABS: Troponin I Less than 0.010 ng/mL (< 0.028)
== END 2024-06-28 09:40 | disposition home or self-care (01) ==
LOC: ERS 05:39
DX: R07.9 Chest pain, unspecified (principal); R42 Dizziness and giddiness; R29.700 NIHSS score 0; E78.5 Hyperlipidemia, unspecified; E11.9 Type 2 diabetes mellitus without complications; Z55.0 Illiteracy and low-level literacy; Z79.84 Long term (current) use of oral hypoglycemic drugs; Z79.4 Long term (current) use of insulin; Z79.899 Other long term (current) drug therapy
CPT/HCPCS: 36415; 71045; 80053; 84484; 84703; 85025; 93005; 94760; 96374; J2405

== ENCOUNTER 2025-04-07 14:33 | Emergency (ER) | payer OTHER ==
[~2025-04-07 14:33] MED LIST changes: -Iopamidol-370 76% 500 ML 1 ML ONE; +Iopamidol-370 76% 500 ML MDV (1 ML CHARGE) ONE
[2025-04-07] MEDS ORDERED: Ketorolac Tromethamine 30 MG (1 mL) VIAL ONE (15:12)
[2025-04-07 15:17] LABS: CAUTI Indications for Culture Dysuria,urgency,freq; Glucose, Urine (Dipstick) Greater than 1000 mg/dL (Negative); Leukocyte 250 Leu/uL (Negative); Protein, Urine (Dipstick) Negative (Neg-Trace); RBC/HPF 0-3 HPF (0-3); Specific Gravity, Urine 1.024 (1.002-1.036); WBC/HPF Greater than 50 HPF (0-3)
[2025-04-07 15:27] LABS: Bacteria/HPF 1+ HPF (None Seen)
[2025-04-07 15:28] LABS: Urine Culture Reflex Yes Yes
[2025-04-07 15:35] LABS: ALT (SGPT) 15 U/L (Less than 34); AST (SGOT) 25 U/L (11-34); Albumin 3.5 g/dL (3.1-4.5); Alkaline Phosphatase 80 U/L (40-110); Anion Gap 12 mmol/L (10-20); BUN (Urea Nitrogen) 13 mg/dL (9.8-20.1); Bilirubin, Total 0.2 mg/dL (0.3-1.2); Calc. Creatinine Clearance 0 mL/min (70-130); Calcium 8.7 mg/dL (7.8-10.44); Carbon Dioxide 26 mmol/L (22-29); Chloride 105 mmol/L (98-107); Globulin 4.0 g/dL (2.4-3.5); Glucose 202 mg/dL (70-105); Hematocrit 40.9 % (36.0-47.0); Hemoglobin 13.1 g/dL (12.0-16.0); Lipase 18 U/L (8-78); Mean Corpuscular Hemoglobin 25.8 pg (27.0-31.0); Mean Corpuscular Volume 80.7 fL (78.0-98.0); Platelet Count 129 10x3/uL (130-400); Potassium 4.4 mmol/L (3.5-5.1); Red Blood Cell (RBC) Count 5.07 mill/uL (4.20-5.40); Sodium 139 mmol/L (136-145); White Blood Cell (WBC) Count 9.70 10x3/uL (4.8-10.8)
[2025-04-07 16:05] LABS: Anisocytosis SLIGHT = 6-15 cells HPF (0-5); Platelet Adequacy Comment Platelets Decreased; Polychromasia SLIGHT = 2-3 cells HPF (0-2); Smudge Cells 8.1 %; Stomatocytes SLIGHT = 2-5 cells HPF (0-1)
== END 2025-04-07 16:32 | disposition home or self-care (01) ==
LOC: ERS 14:33
DX: N10 Acute pyelonephritis (principal); E11.9 Type 2 diabetes mellitus without complications; I10 Essential (primary) hypertension
CPT/HCPCS: 74177; 80053; 81001; 83690; 85025; 87077; 87086; 87186; 96374; J1885; Q9967

== ENCOUNTER 2025-04-12 14:27 | Emergency (ER) | payer OTHER ==
[2025-04-12 15:39] LABS: CAUTI Indications for Culture Acute Hematuria; Glucose, Urine (Dipstick) Greater than 1000 mg/dL (Negative); Leukocyte Negative Leu/uL (Negative); Protein, Urine (Dipstick) Negative (Neg-Trace); RBC/HPF 0-3 HPF (0-3); Specific Gravity, Urine 1.024 (1.002-1.036); WBC/HPF 0-3 HPF (0-3); Yeast-Budding Rare HPF (None Seen)
[2025-04-12 15:45] LABS: Bacteria/HPF 1+ HPF (None Seen)
[2025-04-12 15:47] LABS: Urine Culture Reflex No No
[2025-04-12 19:17] LABS: #Basophils 0.04 10x3/uL (0.0-0.2); #Eosinophils 0.21 10x3/uL (0.0-0.7); #Monocytes 0.64 10x3/uL (0.11-0.59); #Neutrophils 5.56 10x3/uL (1.40-6.50); %Basophils 0.4 % (0.0-1.0); %Eosinophils 2.2 % (0.0-10.0); %Lymphocytes 32.3 % (21.0-51.0); %Monocytes 6.7 % (0.0-10.0); %Neutrophils 57.9 % (42.0-75.0); Hematocrit 42.1 % (36.0-47.0); Hemoglobin 13.4 g/dL (12.0-16.0); Mean Corpuscular Hemoglobin 25.8 pg (27.0-31.0); Mean Corpuscular Volume 81.1 fL (78.0-98.0); Platelet Count 111 10x3/uL (130-400); Red Blood Cell (RBC) Count 5.19 mill/uL (4.20-5.40); White Blood Cell (WBC) Count 9.60 10x3/uL (4.8-10.8)
[2025-04-12 19:26] LABS: ALT (SGPT) 15 U/L (Less than 34); AST (SGOT) 27 U/L (11-34); Albumin 3.9 g/dL (3.1-4.5); Alkaline Phosphatase 75 U/L (40-110); Anion Gap 15 mmol/L (10-20); BUN (Urea Nitrogen) 15 mg/dL (9.8-20.1); Bilirubin, Total 0.2 mg/dL (0.3-1.2); Calc. Creatinine Clearance 0 mL/min (70-130); Calcium 9.2 mg/dL (7.8-10.44); Carbon Dioxide 25 mmol/L (22-29); Chloride 105 mmol/L (98-107); Globulin 3.9 g/dL (2.4-3.5); Glucose 181 mg/dL (70-105); Lipase 15 U/L (8-78); Potassium 3.9 mmol/L (3.5-5.1); Sodium 141 mmol/L (136-145)
== END 2025-04-12 20:30 | disposition home or self-care (01) ==
LOC: ERS 14:27
DX: R10.9 Unspecified abdominal pain (principal); R42 Dizziness and giddiness; I10 Essential (primary) hypertension; E11.9 Type 2 diabetes mellitus without complications
CPT/HCPCS: 74176; 80053; 81001; 83690; 85025; 87480; 87510; 87660; 96374; J2270